=== PATIENT | female | born 2000 | race Caucasian/White ===

== ENCOUNTER 2019-09-04 03:38 | Inpatient (IN) | payer SELFPAY ==
[2019-09-04] VITALS (59 sets, daily range): BP systolic 88–133; BP diastolic 50–81
[~2019-09-04] VITALS: Ht 162.6 cm; Wt 71.3 kg
--- NOTE | 2019-09-04 06:00 | NUR ---
ROMINA TAYLOR presented to unit via ambulatory from ED, accompanied by s/o, with c/o INDUCTION 39 08/03. ROMINA TAYLOR weighed, gowned, voided, and to bed. EFHM and TOCO applied, VS taken. ROMINA TAYLOR oriented to bed controls, call light, TV, heat, and A/C controls.
[2019-09-04] MEDS ORDERED: D5 LR IV SOLUTION 1,000 ML IV ONE (06:09)
[2019-09-04] MEDS ORDERED: OXYTOCIN PRE-MIX DRIP 500 ML IV SCH (06:18)
[2019-09-04] MEDS: D5 LR IV SOLUTION 1,000 ML IV SCH ×3 (06:28→21:36)
[2019-09-04 06:29] LABS: BASOPHILS % (AUTO) 0 % (0-10); EOSINOPHILS # (AUTO) 0.1 10^3/uL (0.0-0.3); EOSINOPHILS % (AUTO) 1 % (0-10); HEMATOCRIT 36 % (35-52); HEMOGLOBIN 11.9 G/DL (11.5-16.0); LYMPHOCYTES # (AUTO) 2.6 X 10^3 (1.0-4.0); LYMPHOCYTES % (AUTO) 25 % (12-44); MEAN CORPUSCULAR HEMOGLOBIN 29 PG (25-34); MEAN CORPUSCULAR HGB CONC 34 G/DL (32-36); MEAN CORPUSCULAR VOLUME 85 FL (80-99); MEAN PLATELET VOLUME 10.8 FL (7.4-10.4); MONOCYTES # (AUTO) 0.9 X 10^3 (0.0-1.0); MONOCYTES % (AUTO) 9 % (0-12); NEUTROPHILS # (AUTO) 6.7 X 10^3 (1.8-7.8); NEUTROPHILS % (AUTO) 65 % (42-75); PLATELET COUNT 233 10^3/uL (130-400); RED CELL DISTRIBUTION WIDTH 14.1 % (10.0-14.5); WHITE BLOOD COUNT 10.3 10^3/uL (4.3-11.0)
--- NOTE | 2019-09-04 07:10 | NUR ---
report received form carolina shaw
--- NOTE | 2019-09-04 10:50 | NUR ---
THIS RN CALLS DR RICHARDS WITH UP PT REPORT. AUTUMN CLOSED, FIRM, UC Q2M, MODERATE-FIRM PALPATION, PT STATES NO PAIN, NOT FEELING UC. FHT REVIEWED WITH DR RICHARDS. NO NEW ORDERS RECEIVED. Addendum: 09/04/19 at 1646 by DANIEL ANDREWS RN RN INFORMS DR RICHARDS THAT PT IS NOW ON [address] RICHARDS STATES RN MAY TURN PITOCIN UP TO 30 MILLIUNITS, STOP AT 30.
--- NOTE | 2019-09-04 14:41 | NUR ---
RN UPDATES DR RICHARDS ON PT REPORT. SVE CLOSED. UPON EXAM, RN FELT SLIGHT DIMPLE INN CERVIX COMPARED TO THE ROUNDED CONE FELT ON INITIAL EXAM. PITOCIN ON . UC 1-3M. T REVIEWED WITH DR RICHARDS. NO NEW ORDERS. DR RICHARDS ASKS RN IF WE HAVE CERVIDIL. DR SUTHERLAND INFORMED THAT [facility] DOES NOT HAVE CERVIDIL BUT HAS CYTOTEC.
--- NOTE | 2019-09-04 16:30 | NUR ---
DR RICHARDS CALLED THIS RN TO DISCUSS PLAN OF PT CARE. SVE REMAINS UNCHANGED, CLOSED. DR RICHARDS ORDERS TO STOP PITOCIN, WAIT 4 HOURS, THEN GIVE A DOSE OF VAGINAL CYTOTEC FOR CERVICAL RIPENING. DR RICHARDS WILL BE [facility] TO SEE PT AFTER 1999.
--- NOTE | 2019-09-04 17:03 | NUR ---
PT WANTS TO EAT FOOD SINCE PITOCIN HAS BEEN TURNED OFF. THIS RN ASKS DR RICHARDS. DR RICHARDS OKAYED.
[2019-09-04] MEDS ORDERED: LACTATED RINGERS 1,000 ML IV SCH (17:07)
[2019-09-04] MEDS ORDERED: MISOPROSTOL 100 MCG (CYTOTEC) TAB PV PRN (17:15)
[2019-09-04] MEDS ORDERED: TERBUTALINE INJ 1 MG/ML (BRETHINE) AMP SC PRN (17:15)
[2019-09-04] MEDS: MISOPROSTOL 100 MCG (CYTOTEC) TAB PV PRN (20:40)
--- NOTE | 2019-09-04 21:36 | History & Physical-OB/GYN ---
History of Present Illness History of Present Illness Reason for visit/HPI Ms. Bee, at 39 2/7 weeks presents for Pitocin Induction of Labor Date of Admission Sep 04, 2019 at 05:38 Date Seen by a Provider: Sep 04, 2019 Time Seen by a Provider: 06:45 I consulted on this patient on 09/04/19 0645 Attending Physician Arturo Singletary DO Admitting Physician Arturo Singletary DO Consult Allergies and Home Medications Allergies Coded Allergies: No Known Drug Allergies (Unverified , 09/04/19) Patient Home Medication List Home Medication List Reviewed: Yes Past Wsolwho-Rrltmy-Rxyhrz Hx Patient Social History Marrital Status: Number of Children: 0 Number of living children: 0 Employed/Student: unemployed Alcohol Use: Denies Use Recreational Drug Use: No Smoking Status: Never a Smoker Physical Abuse Screen: No Sexual Abuse: No Recent Foreign Travel: No Contact w/other who traveled: No Recent Hopitalizations: No Recent Infectious Disease Expo: No Seasonal Allergies Seasonal Allergies: No Surgeries No Respiratory No Cardiovascular No Neurological No Reproductive System Expected Date of Delivery: Sep 09, 2019 Genitourinary No Gastrointestinal No Musculoskeletal No Endocrine History of Endocrine Disorders: No HEENT History of HEENT Disorders: No Cancer No Psychosocial History of Psychiatric Problem: No Integumentary History of Skin or Integumenta: No Blood Transfusions History of Blood Disorders: No Adverse Reaction to a Blood Tr: No Family Medical History Family Hx: Patient reports no known family medical history. Review of Systems Constitutional: see HPI Physical Exam Physical Exam Vital Signs Vital Signs Date Time Temp Pulse Resp B/P (MAP) Pulse Ox O2 Delivery O2 Flow Rate FiO2 09/04/19 20:45 36.9 91 16 115/81 (92) Room Air 09/04/19 19:45 91 16 101/61 (74) Room Air 09/04/19 19:30 37.1 87 16 107/62 (77) Room Air 09/04/19 19:15 84 16 98/65 (76) Room Air 09/04/19 19:00 88 111/66 (81) Room Air 09/04/19 18:45 85 110/74 (86) Room Air 09/04/19 18:30 37.0 86 110/71 (84) Room Air 09/04/19 18:15 Room Air 09/04/19 18:00 88 109/67 (81) Room Air 09/04/19 17:45 84 107/69 (82) Room Air 09/04/19 17:30 86 104/64 (77) Room Air 09/04/19 17:15 82 17 107/66 (80) Room Air 09/04/19 17:00 99 103/67 (79) Room Air 09/04/19 16:45 81 109/68 (82) Room Air 09/04/19 16:30 80 100/63 (75) Room Air 09/04/19 16:15 37.4 86 133/58 (83) Room Air 09/04/19 16:00 87 118/70 (86) Room Air 09/04/19 15:45 81 111/69 (83) Room Air 09/04/19 15:30 79 114/69 (84) Room Air 09/04/19 15:15 79 101/55 (70) Room Air 09/04/19 15:00 91 94/53 (67) Room Air 09/04/19 14:45 82 18 96/53 (67) Room Air 09/04/19 14:30 37.4 85 101/62 (75) Room Air 09/04/19 14:15 86 104/68 (80) Room Air 09/04/19 14:00 86 98/55 (69) Room Air 09/04/19 13:45 86 111/69 (83) Room Air 09/04/19 13:30 85 126/73 (90) Room Air 09/04/19 13:15 37.6 76 16 94/60 (71) Room Air 09/04/19 13:00 106 88/54 (65) Room Air 09/04/19 12:45 83 106/57 (73) Room Air 09/04/19 12:30 91 98/59 (72) Room Air 09/04/19 12:15 82 112/61 (78) Room Air 09/04/19 12:00 85 111/57 (75) Room Air 09/04/19 11:45 82 111/67 (82) Room Air 09/04/19 11:30 82 120/73 (89) Room Air 09/04/19 11:15 87 18 112/73 (86) Room Air 09/04/19 11:00 86 119/60 (79) Room Air 09/04/19 10:45 85 111/71 (84) Room Air 09/04/19 10:30 105 126/76 (93) Room Air 09/04/19 10:15 88 100/55 (70) Room Air 09/04/19 10:00 88 104/58 (73) Room Air 09/04/19 09:45 37.4 82 92/52 (65) Room Air 09/04/19 09:30 78 16 108/65 (79) Room Air 09/04/19 09:15 Room Air 09/04/19 09:00 78 106/67 (80) Room Air 09/04/19 08:45 86 105/69 (81) Room Air 09/04/19 08:30 80 107/65 (79) Room Air 09/04/19 08:15 83 109/67 (81) Room Air 09/04/19 08:12 37.5 100 16 100 Room Air 09/04/19 08:00 81 104/65 (78) Room Air 09/04/19 07:45 81 101/62 (75) Room Air 09/04/19 07:30 37.1 87 16 117/60 (79) Room Air 09/04/19 07:15 09/04/19 07:00 100 109/66 (80) 09/04/19 06:45 90 102/59 (73) 09/04/19 06:10 37.5 100 18 113/68 (83) 98 Capillary Refill : Less Than 3 Seconds Labs Laboratory Tests 09/04/19 06:15: White Blood Count 10.3, Red Blood Count 4.16L, Hemoglobin 11.9, Hematocrit 36, Mean Corpuscular Volume 85, Mean Corpuscular Hemoglobin 29, Mean Corpuscular Hemoglobin Concent 34, Red Cell Distribution Width 14.1, Platelet Count 233, Mean Platelet Volume 10.8H, Neutrophils (%) (Auto) 65, Lymphocytes (%) (Auto) 25, Monocytes (%) (Auto) 9, Eosinophils (%) (Auto) 1, Basophils (%) (Auto) 0, Neutrophils # (Auto) 6.7, Lymphocytes # (Auto) 2.6, Monocytes # (Auto) 0.9, Eosinophils # (Auto) 0.1, Basophils # (Auto) 0.0 General Appearance: No Apparent Distress, WD/WN Respiratory: Chest Non Tender, Lungs Clear, Normal Breath Sounds Cardiovascular: Regular Rate, Rhythm, No Murmur Abdominal: normal bowel sounds, non tender Vagina: WNL Cervix: WNL Cervix OS: closed Uterus: Enlarged (Gravid) Extremity: Normal Inspection, No Calf Tenderness Assessment/Plan Assessment and Plan Assessment: Intrauterine at 39 2/7 /weeks Plan: Pitocin Induction of Labor. AROM when possible. Pain management per patient request. I expect a normal spontaneous vaginal delivery Admission Diagnosis Admission Status: Inpatient Order (span 2 midnights) Reason for Inpatient Admission: Pitocin Induction of Labor Clinical Quality Measures DVT/VTE Risk/Contraindication: Risk Factor Score Per Nursin RFS Level Per Nursing on Admit: 1=Low/No VTE PPX ARTURO SINGLETARY DO Sep 04, 2019 21:36
[2019-09-05] VITALS (13 sets, daily range): BP systolic 81–111; BP diastolic 46–74
[2019-09-05] MEDS: MISOPROSTOL 100 MCG (CYTOTEC) TAB PV PRN (00:46)
[2019-09-05] MEDS: D5 LR IV SOLUTION 1,000 ML IV SCH (05:55)
--- NOTE | 2019-09-05 07:40 | Discharge Summary ---
Diagnosis/Chief Complaint Date of Admission Sep 04, 2019 at 05:38 Date of Discharge September 05, 2019 Discharge Date: Sep 05, 2019 Discharge Time: 08:00 Admission Diagnosis Admission Diagnosis Intrauterine at 39 2/7 weeks Discharge Diagnosis Intrauterine at 39 3/7 weeks Reason Hospital Visit Ms. Bee, at 39 2/7 weeks presents for Pitocin Induction of Labor Discharge Summary Hospital Course Was the Problem List Reviewed?: Yes Hospital Course Ms. Bee was admitted for scheduled Pitocin Induction. After using Pitocin overnight with no cervical change, I tried Cytotec for several doses. Just like the Pitocin the Cytotec didn't exact any cervical change. Consequently, we decided that it may be prudent to send her home and try induction on a different day. We rescheduled her for September 09, 2019. Labs Laboratory Tests 09/04/19 06:15: Red Blood Count 4.16L, Mean Platelet Volume 10.8H Procedures None. Discharge Physical Examination Allergies: Coded Allergies: No Known Drug Allergies (Unverified , 09/04/19) Vitals & I&Os Vital Signs Date Time Temp Pulse Resp B/P (MAP) Pulse Ox O2 Delivery O2 Flow Rate FiO2 09/05/19 06:45 80 16 108/72 (84) Room Air 09/05/19 06:15 36.6 09/04/19 08:12 100 General Appearance: Alert, Oriented X3, Cooperative HEENT: Atraumatic Respiratory: Clear to Auscultation, Normal Air Movement Cardiovascular: Regular Rate, No Murmurs Abdominal: Normal Bowel Sounds Extremities: No Clubbing, No Cyanosis Skin: No Rashes Neuro: Normal Gait, Normal Speech Psych/Mental Status: Mental Status NL Discharge Home Medications Reviewed and agree with Discharge Medication list on patient's Discharge Instruction sheet Instructions to Patient/Family Please see electronic discharge instructions given to patient. Clinical Quality Measures DVT/VTE Risk/Contraindication: Risk Factor Score Per Nursin RFS Level Per Nursing on Admit: 1=Low/No VTE PPX HAMILTON RICHARDS DO Sep 05, 2019 07:40
--- NOTE | 2019-09-05 09:00 | NUR ---
Discharge instructions explained, signed and copy to patient. pt verbalized understanding of instructions and denied questions. Ambulates self off unit to private vehicle with belongings in hand.
--- OUTSIDE RECORDS SUMMARY | 2019-09-06 07:13 | XMS REPORT | Continuity of Care Document ---
Author Organization Unknown Address Unknown Phone Unavailable Allergies Active Description Code Type Severity Reaction Onset Reported/Identified Relationship to Patient Clinical Status Yes No Known Drug Allergies [id number] Drug Allergy Unknown N/A 09/04/2019 Medications There is no data. Problems There is no data. Procedures There is no data. Results Test Result Range HCG, QUANTITATIVE - 03/09/19 14:56 [place], [place] [address] mIU/mL NRG SUREPATH PAP RFX HPV mRNA E6/E7 - 09:43 CLINICAL INFORMATION: NRG LMP: NRG PREV. PAP: NRG PREV. 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: NRG INFECTION: NRG COMMENT NRG GLUCOSE ENDY 1 HOUR - 06/29/19 12:03 GLUCOSE, POSTPRANDIAL/ 1 HOUR 103 mg/dL See Note: CBC - 06/29/19 12:03 WHITE BLOOD CELL COUNT 8.9 Thousand/uL 3 .8-10.8 RED BLOOD CELL COUNT 3.93 Million/uL 3.8 0-5.10 HEMOGLOBIN 11.4 g/dL 11.7-15.5 HEMATOCRIT 34.6 % 35.0-45.0 MCV 88.0 fL 80.0-100.0 MCH 29.0 pg 27.0-33.0 MCHC 32.9 g/dL 32.0-36.0 RDW 12.6 % 11.0-15.0 PLATELET COUNT 248 Thousand/uL 140-400 MPV 10.5 fL 7.5-12.5 ABSOLUTE NEUTROPHILS 5874 cells/uL 1500- 7800 ABSOLUTE LYMPHOCYTES 2474 cells/uL 850-3 900 ABSOLUTE MONOCYTES 445 cells/uL 200-950 ABSOLUTE EOSINOPHILS 80 cells/uL 15-500 ABSOLUTE BASOPHILS 27 cells/uL 0-200 NEUTROPHILS 66 % NRG LYMPHOCYTES 27.8 % NRG MONOCYTES 5.0 % NRG EOSINOPHILS 0.9 % NRG BASOPHILS 0.3 % NRG SYPHILIS (RPR W/ REFLEX CONFIRMATION) - 06/29/19 12:03 RPR (DX) W/REFL TITER AND CONFIRMATORY TESTING NON-REACTIVE NON-REACTIVE CULTURE, GROUP B STREP (VAGINAL) - 08/10 09:40 STREPTOCOCCUS, GROUP B CULTURE SEE NOTE NRG Complete blood count (CBC) with automate d white blood cell (WBC) differential - 09/04/19 06:15 Blood leukocytes automated count (number/volume) 10.3 10*3/uL 4.3-11.0 Blood erythrocytes automated count (number/volume) 4.16 10*6/uL 4.35-5.85 Venous blood hemoglobin measurement (mass/volume) 11.9 g/dL 11.5-16.0 Blood hematocrit (volume fraction) 36 % 35-52 Automated erythrocyte mean corpuscular volume 85 [ foz_us] 80-99 Automated erythrocyte mean corpuscular h emoglobin (mass per erythrocyte) 29 pg 25-34 Automated erythrocyte mean corpuscular h emoglobin concentration measurement (mass/volume) 34 g/dL 32-36 Automated erythrocyte distribution width ratio 14. 1 % 10.0- 14.5 Automated blood platelet count (count/volume) 233 10*3/uL 130-400 Automated blood platelet mean volume measurement 10.8 [foz_us] 7.4-10.4 Automated blood neutrophils/100 leukocytes 65 % 42-75 Automated blood lymphocytes/100 leukocytes 25 % 12-44 Blood monocytes/100 leukocytes 9 % 0-12 Automated blood eosinophils/100 leukocytes 1 % 0-10 Automated blood basophils/100 leukocytes 0 % 0-10 Blood neutrophils automated count (number/volume) 6.7 10*3 1.8-7.8 Blood lymphocytes automated count (number/volume) 2.6 10*3 1.0-4.0 Blood monocytes automated count (number/volume) 0. 9 10*3 0.0-1.0 Automated eosinophil count 0.1 10*3/uL 0 .0-0.3 Automated blood basophil count (count/volume) 0.0 10*3/uL 0.0-0.1 Blood type T Indirect antibody screen pa annamaria - 09/04/19 07:16 WRISTBAND NUMBER [id number] NRG ABO+Rh group AP NRG Blood group antibody screen NEGATIVE NR G Encounters ACCT No. Visit Date/Time Discharge Status Pt. Type Provider Facility Loc./Unit Complaint [id number] 06/29/2019 11:00:00 06/29/2019 23:59: 59 CLS Outpatient [facility] [id number] 08/10/2019 09:30:00 Document Registration [id number] 06/29/2019 11:00:00 Document Registration [id number] 03/15/2019 09:30:00 Document Registration [id number] 03/09/2019 15:00:00 Document Registration [id number] 09/04/2019 05:38:00 020 09:00:00 DIS Inpatient HAMILTON RICHARDS DO Via [facility] LDRP INDUCTION
== END 2019-09-05 09:00 | disposition home or self-care (01) | DRG 833 ==
LOC: LDRP 05:38
PROVIDERS: ADMIT Obstetrics & Gynecology; ATTEND Obstetrics & Gynecology
PROC: 3E033VJ Introduction of Other Hormone into Peripheral Vein, Percutaneous Approach (ICD-10-PCS; principal; 2019-09-04)
DX: O61.0 Failed medical induction of labor (principal); Z3A.39 39 weeks gestation of pregnancy
CPT/HCPCS: 36415; 82962; 85025; 86850; 86900; 86901; 96361; 96374; 99211; G0378

== ENCOUNTER 2019-09-09 20:00 | Inpatient (IN) | payer SELFPAY ==
[2019-09-09] VITALS (7 sets, daily range): BP systolic 102–117; BP diastolic 63–76
[~2019-09-09] VITALS: Ht 157.5 cm; Wt 70.8 kg
--- NOTE | 2019-09-09 20:00 | NUR ---
ROMINA TAYLOR presented to unit via ambulation from home, accompanied by , for INDUCTION. ROMINA TAYLOR weighed, gowned, voided, and to bed. EFHM and TOCO applied, VS taken. ROMINA TAYLOR oriented to bed controls, call light, TV, heat, and A/C controls.
[2019-09-09] MEDS ORDERED: LACTATED RINGERS 1,000 ML IV SCH (20:35)
[2019-09-09] MEDS ORDERED: D5 LR IV SOLUTION 1,000 ML IV ONE (20:44)
[2019-09-09 20:45] LABS: BILIRUBIN,URINE NEGATIVE (NEGATIVE); CLARITY,URINE CLEAR; COLOR,URINE YELLOW; GLUCOSE, URINE (UA) NEGATIVE (NEGATIVE); KETONES,URINE NEGATIVE (NEGATIVE); LEUKOCYTE ESTERASE ,URINE 2+ (NEGATIVE); NITRITE,URINE NEGATIVE (NEGATIVE); PROTEIN,URINE NEGATIVE (NEGATIVE)
[2019-09-09] MEDS ORDERED: MINERAL OIL CONCENTRATE 99.9% 15 ML UDC TOP PRN (20:45)
[2019-09-09] MEDS ORDERED: MISOPROSTOL 100 MCG (CYTOTEC) TAB PO ONE (20:45)
[2019-09-09 20:50] LABS: BASOPHILS % (AUTO) 0 % (0-10); EOSINOPHILS # (AUTO) 0.1 10^3/uL (0.0-0.3); EOSINOPHILS % (AUTO) 1 % (0-10); HEMATOCRIT 36 % (35-52); HEMOGLOBIN 12.1 G/DL (11.5-16.0); LYMPHOCYTES # (AUTO) 2.5 X 10^3 (1.0-4.0); LYMPHOCYTES % (AUTO) 26 % (12-44); MEAN CORPUSCULAR HEMOGLOBIN 29 PG (25-34); MEAN CORPUSCULAR HGB CONC 34 G/DL (32-36); MEAN CORPUSCULAR VOLUME 84 FL (80-99); MONOCYTES # (AUTO) 0.7 X 10^3 (0.0-1.0); MONOCYTES % (AUTO) 7 % (0-12); NEUTROPHILS # (AUTO) 6.5 X 10^3 (1.8-7.8); NEUTROPHILS % (AUTO) 67 % (42-75); PLATELET COUNT 261 10^3/uL (130-400); RED CELL DISTRIBUTION WIDTH 13.4 % (10.0-14.5); WHITE BLOOD COUNT 9.8 10^3/uL (4.3-11.0)
[2019-09-09 20:53] LABS: BACTERIA,URINE TRACE /HPF
[2019-09-09] MEDS: D5 LR IV SOLUTION 1,000 ML IV SCH (20:53)
[2019-09-09] MEDS ORDERED: MISOPROSTOL 100 MCG (CYTOTEC) TAB ONE (20:56)
[2019-09-10] VITALS (84 sets, daily range): BP systolic 87–131; BP diastolic 50–95
[2019-09-10] MEDS ORDERED: MISOPROSTOL 100 MCG (CYTOTEC) TAB PO SCH (00:45)
[2019-09-10] MEDS: D5 LR IV SOLUTION 1,000 ML IV SCH ×3 (04:15→18:17)
--- OUTSIDE RECORDS SUMMARY | 2019-09-10 04:22 | XMS REPORT | Continuity of Care Document ---
Author Organization Unknown Address Unknown Phone Unavailable Allergies Active Description Code Type Severity Reaction Onset Reported/Identified Relationship to Patient Clinical Status Yes No Known Drug Allergies [id number] Drug Allergy Unknown N/A 09/04/2019 Medications There is no data. Problems There is no data. Procedures There is no data. Results Test Result Range HCG, QUANTITATIVE - 03/09/19 14:56 [place], [place] [address] mIU/mL NRG SUREPATH PAP RFX HPV mRNA E6/E7 - 09:43 CLINICAL INFORMATION: NRG LMP: NRG PREV. PAP: NRG PREV. 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 Visit Date/Time Discharge Status Pt. Type Provider Facility Loc./Unit Complaint [id number] 06/29/2019 11:00:00 06/29/2019 23:59: 59 CLS Outpatient [facility] [id number] 08/10/2019 09:30:00 Document Registration [id number] 06/29/2019 11:00:00 Document Registration [id number] 03/15/2019 09:30:00 Document Registration [id number] 03/09/2019 15:00:00 Document Registration [id number] 09/04/2019 05:38:00 020 09:00:00 DIS Inpatient HAMILTON RICHARDS DO [facility] LDRP INDUCTION [id number] 09/09/2019 20:00:00 P EN Preadmit HAMILTON RICHARDS DO I NDUCTION
[2019-09-10] MEDS ORDERED: OXYTOCIN PRE-MIX DRIP 500 ML IV SCH ×2 (05:00→20:05)
[2019-09-10] MEDS: LACTATED RINGERS 1,000 ML IV SCH ×2 (09:49→18:31)
[2019-09-10] MEDS ORDERED: SUFENTA 0.6MCG/ML BUPIVA 0.125 100 ML ONE (10:16)
[2019-09-10] MEDS ORDERED: BUPIVACAINE 0.25% 30 ML (SENSORCAINE) VIAL ONE ×2 (10:34→18:34)
[2019-09-10] MEDS ORDERED: LIDOCAINE PF 2% 5 ML (XYLOCAINE) VIAL ONE ×2 (10:34→18:34)
[2019-09-10] MEDS ORDERED: fentaNYL INJECTION 100 MCG/2 ML AMP ONE ×2 (10:35→18:35)
--- NOTE | 2019-09-10 10:45 | NUR ---
1045 Cruz WHITESIDE CRNA here for epidural placement. Procedure explained, consent reviewed and signed by anesthesia. Questions answered to patient's satisfaction. Time out taken to verify correct patient/procedure. 1049 Patient up to side of bed, assisted into sitting position. 1054 Betadine prep done x3 and sterile drape applied. 1057 Local done, see anesthesia record. 1101 Test dose given, see anesthesia record for drug and dosage. Epidural catheter secured in place. Epidural placement complete. 1110 Assisted back into bed, monitors adjusted. Epidural dosed, see anesthesia record. Epidural of Sufenta/Bupvicaine @12cc/hr stated per pump. Patient tolerated procedure well.
[2019-09-10] MEDS ORDERED: NALOXONE 0.4 MG/ML 1 ML (NARCAN) VIAL IV PRN (11:30)
[2019-09-10] MEDS ORDERED: ONDANSETRON 4 MG/2 ML (SDV) Z0FRAN IV PRN (11:30)
[2019-09-10] MEDS ORDERED: EPIDURAL (SUFENTA 0.6MCG/ML BUPIVA 0.125%) 100 ML BAG EPI PRN (11:30)
[2019-09-10] MEDS ORDERED: diphenhydrAMINE 50 MG/ML INJ (BENADRYL) IV PRN (11:30)
--- NOTE | 2019-09-10 12:37 | History & Physical-OB/GYN ---
History of Present Illness History of Present Illness Reason for visit/HPI Ms. Bee, , at 40 2/7 weeks gestation, was admitted for Cytotec Cervical Ripening, followed by Pitocin Induction of Labor Date of Admission Sep 09, 2019 at 20:06 Date Seen by a Provider: Sep 10, 2019 Time Seen by a Provider: 09:30 I consulted on this patient on 09/10/19 12:32 Attending Physician Arturo Singletary DO Admitting Physician Arturo Singletary DO Consult Allergies and Home Medications Allergies Coded Allergies: No Known Drug Allergies (Unverified , 09/09/19) Home Medications No Active Prescriptions or Reported Meds Patient Home Medication List Home Medication List Reviewed: Yes Past Cxhcuwv-Ctbnbn-Xqwdjy Hx Patient Social History Marrital Status: Number of Children: 0 Number of living children: 0 Employed/Student: unemployed Alcohol Use: Denies Use Recreational Drug Use: No Physical Abuse Screen: No Sexual Abuse: No Recent Foreign Travel: No Recent Hopitalizations: No Seasonal Allergies Seasonal Allergies: No Surgeries No Respiratory No Cardiovascular No Neurological No Reproductive System Expected Date of Delivery: Sep 09, 2019 Sexually Transmitted Disease: No HIV/AIDS: No Genitourinary No Gastrointestinal No Musculoskeletal No Endocrine History of Endocrine Disorders: No HEENT History of HEENT Disorders: No Cancer No Psychosocial History of Psychiatric Problem: No Integumentary History of Skin or Integumenta: No Blood Transfusions History of Blood Disorders: No Adverse Reaction to a Blood Tr: No Family Medical History Family Hx: Patient reports no known family medical history. Review of Systems Constitutional: see HPI Physical Exam Physical Exam Vital Signs Vital Signs Date Time Temp Pulse Resp B/P (MAP) Pulse Ox O2 Delivery O2 Flow Rate FiO2 09/10/19 11:37 36.8 55 18 108/65 (79) Non Rebreather 15.00 09/10/19 11:35 64 18 102/65 (77) 99 Non Rebreather 15.00 09/10/19 11:28 64 18 96/56 (69) Non Rebreather 15.00 09/10/19 11:25 57 18 111/55 (73) 100 Non Rebreather 15.00 09/10/19 11:22 49 18 118/72 (87) 100 Non Rebreather 15.00 09/10/19 11:19 53 18 92/51 (65) Non Rebreather 15.00 09/10/19 11:16 53 18 92/53 (66) 100 Non Rebreather 15.00 09/10/19 11:13 37.2 68 18 96/57 (70) Non Rebreather 15.00 09/10/19 11:10 78 18 104/59 (74) 98 Room Air 09/10/19 11:07 79 18 103/71 (82) 91 Room Air 09/10/19 11:04 79 18 101/62 (75) 97 Room Air 09/10/19 11:01 68 18 103/64 (77) Room Air 09/10/19 10:58 70 18 124/74 (91) Room Air 09/10/19 10:55 72 18 118/74 (89) 100 Room Air 09/10/19 10:52 72 18 117/85 (96) Room Air 09/10/19 10:49 74 18 123/78 (93) 100 Room Air 09/10/19 10:37 68 18 128/80 (96) Room Air 09/10/19 10:06 57 18 119/79 (92) Room Air 09/10/19 09:51 67 18 128/78 (95) Room Air 09/10/19 09:37 61 16 130/78 (95) Room Air 09/10/19 09:28 36.8 62 16 114/76 (89) Room Air 09/10/19 08:22 67 16 125/79 (94) Room Air 09/10/19 08:06 68 16 119/59 (79) Room Air 09/10/19 07:51 59 16 121/81 (94) Room Air 09/10/19 07:37 59 16 103/55 (71) Room Air 09/10/19 07:29 36.8 09/10/19 07:20 69 16 126/88 (101) Room Air 09/10/19 07:06 61 16 122/80 (94) Room Air 09/10/19 06:20 54 16 111/66 (81) Room Air 09/10/19 06:10 61 16 111/63 (79) Room Air 09/10/19 05:50 57 16 124/79 (94) Room Air 09/10/19 05:35 60 16 108/74 (85) Room Air 09/10/19 05:20 65 16 87/52 (64) Room Air 09/10/19 04:50 69 16 110/56 (74) Room Air 09/10/19 04:20 37.0 63 16 90/53 (65) Room Air 09/10/19 03:50 69 16 91/50 (64) Room Air 09/10/19 03:20 64 16 91/51 (64) Room Air 09/10/19 02:50 69 16 109/59 (76) Room Air 09/10/19 02:20 65 16 120/67 (84) Room Air 09/10/19 01:50 64 16 110/57 (74) Room Air 09/10/19 01:20 36.6 65 16 98/55 (69) Room Air 09/10/19 00:50 68 16 96/55 (69) Room Air 09/10/19 00:20 67 16 109/73 (85) Room Air 09/09/19 23:50 81 16 102/65 (77) Room Air 09/09/19 23:20 75 16 106/67 (80) Room Air 09/09/19 22:45 71 16 102/63 (76) Room Air 09/09/19 22:25 68 16 117/76 (90) Room Air 09/09/19 21:15 77 16 105/66 (79) 99 Room Air 09/09/19 21:00 37.2 83 16 99 Room Air 09/09/19 20:30 37.2 83 16 115/72 (86) 99 Room Air I & O 09/10/19 07:00 Intake Total 2000 ml Balance 2000 ml Capillary Refill : Less Than 3 Seconds Labs Laboratory Tests 09/09/19 20:05: Urine Color YELLOW, Urine Clarity CLEAR, Urine pH 7.0, Urine Specific Beverly <=1.005, Urine Protein NEGATIVE, Urine Glucose (UA) NEGATIVE, Urine Ketones NEGATIVE, Urine Nitrite NEGATIVE, Urine Bilirubin NEGATIVE, Urine Urobilinogen 0.2, Urine Leukocyte Esterase 2+H, Urine RBC (Auto) NEGATIVE, Urine RBC NONE, Urine WBC 5-10H, Urine Squamous Epithelial Cells 5-10, Urine Crystals NONE, Uri ne Bacteria TRACE, Urine Casts NONE, Urine Mucus NEGATIVE, Urine Culture Indicated YES 09/09/19 20:20: White Blood Count 9.8, Red Blood Count 4.25L, Hemoglobin 12.1, Hematocrit 36, Mean Corpuscular Volume 84, Mean Corpuscular Hemoglobin 29, Mean Corpuscular Hemoglobin Concent 34, Red Cell Distribution Width 13.4, Platelet Count 261, Mean Platelet Volume 11.0H, Neutrophils (%) (Auto) 67, Lymphocytes (%) (Auto) 26, Monocytes (%) (Auto) 7, Eosinophils (%) (Auto) 1, Basophils (%) (Auto) 0, Neutrophils # (Auto) 6.5, Lymphocytes # (Auto) 2.5, Monocytes # (Auto) 0.7, Eosinophils # (Auto) 0.1, Basophils # (Auto) 0.0 General Appearance: No Apparent Distress, WD/WN, Other (Very quiet (shy), doesn't vocalize much) Respiratory: Chest Non Tender, Lungs Clear, Normal Breath Sounds Cardiovascular: Regular Rate, Rhythm, No Murmur Abdominal: normal bowel sounds, non tender Labia: WNL Vagina: WNL Cervix: WNL Cervix OS: closed Uterus: Enlarged (Gravid) Extremity: Normal Inspection, Non Tender, No Calf Tenderness Assessment/Plan Assessment and Plan Assessment: Intrauterine at 40 2/7 weeks Plan: Cytotec orally every 4 hours. Then, Pitocin Induction. Pain management per patient request. I expect a normal spontaneous vaginal delivery. Admission Diagnosis Admission Status: Inpatient Order (span 2 midnights) Reason for Inpatient Admission: Cytotec cervical ripening, followed by Pitocin Induction of Labor Clinical Quality Measures DVT/VTE Risk/Contraindication: Risk Factor Score Per Nursin RFS Level Per Nursing on Admit: 1=Low/No VTE ARTURO LEA DO Sep 10, 2019 12:37
[2019-09-10] MEDS ORDERED: METOCLOPRAMIDE INJ 10 MG/2 ML (REGLAN) ONE (18:10)
[2019-09-10] MEDS ORDERED: FAMOTIDINE 20MG/2ML IV (PEPCID) ONE (18:11)
[2019-09-10] MEDS ORDERED: CITRIC ACID/SOB CIT (BICITRA) 30 ML UDC ONE (18:11)
[2019-09-10] MEDS ORDERED: ceFAZolin 2 GM IV Premixed 50 ML ONE (18:41)
--- NOTE | 2019-09-10 18:47 | Labor Progress Note ---
Labor Progress Note Labor Progress Note Date Seen by Provider: Sep 10, 2019 Time Seen by Provider: 15:00 Subjective: Patient was being Induced at 40 2/7 weeks. Objective: (Can we insert 24 hour vitals here?) Cervical exam: [1 cm] Consistency: [60%] Position: [-3] Presentation: [Vertex] heart tones: 140] beats per minute, [decreased] variability, [] reactive Tocometer: [every 2-3] ctx/10 minutes Repetitive Late Decelerations with decreased variability (Pitocin was discontinued, IV fluid bolus, oxygen via mask, position changes (left lateral recumbent) Assessment/Plan: Jackeline Bee is a (20 /Para / ,Gestational Age (wks)40 here for []. CEFM/TOCO Ms. Bee's fetus is not tolerating labor well, with her low dilation (1 cm), this was discussed with Ms. Bee and her . We are going to proceed with an immediate . The procedure and its associated risks were discussed. All questions were answered. Informed consent was obtained. Vitals - Labs Vital Signs - I&O Vital Signs Date Time Temp Pulse Resp B/P (MAP) Pulse Ox O2 Delivery O2 Flow Rate FiO2 09/10/19 17:20 54 18 94/53 (67) 96 Room Air 09/10/19 17:06 52 18 94/53 (67) 98 Room Air 09/10/19 16:51 60 18 99/62 (74) 98 Room Air 09/10/19 16:34 66 18 95/51 (66) 98 Room Air 09/10/19 16:20 63 18 102/65 (77) 98 Room Air 09/10/19 16:18 37.7 09/10/19 16:05 67 18 105/58 (74) 97 Room Air 09/10/19 15:49 53 18 108/61 (77) 100 Non Rebreather 15.00 09/10/19 15:35 64 18 111/75 (87) 100 Non Rebreather 15.00 09/10/19 15:28 37.5 09/10/19 15:19 56 18 119/70 (86) 100 Non Rebreather 15.00 09/10/19 15:05 45 18 113/57 (75) 100 Non Rebreather 15.00 09/10/19 14:34 74 18 102/64 (77) 100 Non Rebreather 15.00 09/10/19 14:20 51 18 97/55 (69) 100 Non Rebreather 15.00 09/10/19 14:05 52 18 94/50 (65) 100 Non Rebreather 15.00 09/10/19 14:01 37.3 09/10/19 13:49 52 18 97/62 (74) 100 Non Rebreather 15.00 09/10/19 13:36 50 18 101/58 (72) 100 Non Rebreather 15.00 09/10/19 13:20 46 18 100/63 (75) 100 Non Rebreather 15.00 09/10/19 13:04 63 18 98/61 (73) 100 Non Rebreather 15.00 09/10/19 12:50 85 18 108/66 (80) 100 Non Rebreather 15.00 09/10/19 12:37 49 18 94/50 (65) 100 Non Rebreather 15.00 09/10/19 12:26 37.5 09/10/19 12:19 58 18 115/61 (79) Non Rebreather 15.00 09/10/19 12:17 54 18 111/56 (74) Non Rebreather 15.00 09/10/19 12:10 71 18 117/59 (78) 100 Non Rebreather 15.00 09/10/19 12:04 52 18 92/55 (67) 100 Non Rebreather 15.00 09/10/19 11:59 47 18 93/53 (66) Non Rebreather 15.00 09/10/19 11:55 50 18 93/50 (64) 100 Non Rebreather 15.00 09/10/19 11:50 63 18 101/63 (76) 100 Non Rebreather 15.00 09/10/19 11:45 49 18 94/56 (69) 100 Non Rebreather 15.00 09/10/19 11:37 36.8 55 18 108/65 (79) Non Rebreather 15.00 09/10/19 11:35 64 18 102/65 (77) 99 Non Rebreather 15.00 09/10/19 11:28 64 18 96/56 (69) Non Rebreather 15.00 09/10/19 11:25 57 18 111/55 (73) 100 Non Rebreather 15.00 09/10/19 11:22 49 18 118/72 (87) 100 Non Rebreather 15.00 09/10/19 11:19 53 18 92/51 (65) Non Rebreather 15.00 09/10/19 11:16 53 18 92/53 (66) 100 Non Rebreather 15.00 09/10/19 11:13 37.2 68 18 96/57 (70) Non Rebreather 15.00 09/10/19 11:10 78 18 104/59 (74) 98 Room Air 09/10/19 11:07 79 18 103/71 (82) 91 Room Air 09/10/19 11:04 79 18 101/62 (75) 97 Room Air 09/10/19 11:01 68 18 103/64 (77) Room Air 09/10/19 10:58 70 18 124/74 (91) Room Air 09/10/19 10:55 72 18 118/74 (89) 100 Room Air 09/10/19 10:52 72 18 117/85 (96) Room Air 09/10/19 10:49 74 18 123/78 (93) 100 Room Air 09/10/19 10:37 68 18 128/80 (96) Room Air 09/10/19 10:06 57 18 119/79 (92) Room Air 09/10/19 09:51 67 18 128/78 (95) Room Air 09/10/19 09:37 61 16 130/78 (95) Room Air 09/10/19 09:28 36.8 62 16 114/76 (89) Room Air 09/10/19 08:22 67 16 125/79 (94) Room Air 09/10/19 08:06 68 16 119/59 (79) Room Air 09/10/19 07:51 59 16 121/81 (94) Room Air 09/10/19 07:37 59 16 103/55 (71) Room Air 09/10/19 07:29 36.8 09/10/19 07:20 69 16 126/88 (101) Room Air 09/10/19 07:06 61 16 122/80 (94) Room Air 09/10/19 06:20 54 16 111/66 (81) Room Air 09/10/19 06:10 61 16 111/63 (79) Room Air 09/10/19 05:50 57 16 124/79 (94) Room Air 09/10/19 05:35 60 16 108/74 (85) Room Air 09/10/19 05:20 65 16 87/52 (64) Room Air 09/10/19 04:50 69 16 110/56 (74) Room Air 09/10/19 04:20 37.0 63 16 90/53 (65) Room Air 09/10/19 03:50 69 16 91/50 (64) Room Air 09/10/19 03:20 64 16 91/51 (64) Room Air 09/10/19 02:50 69 16 109/59 (76) Room Air 09/10/19 02:20 65 16 120/67 (84) Room Air 09/10/19 01:50 64 16 110/57 (74) Room Air 09/10/19 01:20 36.6 65 16 98/55 (69) Room Air 09/10/19 00:50 68 16 96/55 (69) Room Air 09/10/19 00:20 67 16 109/73 (85) Room Air 09/09/19 23:50 81 16 102/65 (77) Room Air 09/09/19 23:20 75 16 106/67 (80) Room Air 09/09/19 22:45 71 16 102/63 (76) Room Air 09/09/19 22:25 68 16 117/76 (90) Room Air 09/09/19 21:15 77 16 105/66 (79) 99 Room Air 09/09/19 21:00 37.2 83 16 99 Room Air 09/09/19 20:30 37.2 83 16 115/72 (86) 99 Room Air I & O 09/10/19 07:00 Intake Total 2000 ml Balance 2000 ml Labs Laboratory Tests 09/09/19 20:05: Urine Color YELLOW, Urine Clarity CLEAR, Urine pH 7.0, Urine Specific [place] <=1.005, Urine Protein NEGATIVE, Urine Glucose (UA) NEGATIVE, Urine Ketones NEGATIVE, Urine Nitrite NEGATIVE, Urine Bilirubin NEGATIVE, Urine Urobilinogen 0.2, Urine Leukocyte Esterase 2+H, Urine RBC (Auto) NEGATIVE, Urine RBC NONE, Urine WBC 5-10H, Urine Squamous Epithelial Cells 5-10, Urine Crystals NONE, Urine Bacteria TRACE, Urine Casts NONE, Urine Mucus NEGATIVE, Urine Culture Indicated YES 09/09/19 20:20: White Blood Count 9.8, Red Blood Count 4.25L, Hemoglobin 12.1, Hematocrit 36, Mean Corpuscular Volume 84, Mean Corpuscular Hemoglobin 29, Mean Corpuscular Hemoglobin Concent 34, Red Cell Distribution Width 13.4, Platelet Count 261, Mean Platelet Volume 11.0H, Neutrophils (%) (Auto) 67, Lymphocytes (%) (Auto) 26, Monocytes (%) (Auto) 7, Eosinophils (%) (Auto) 1, Basophils (%) (Auto) 0, Neutrophils # (Auto) 6.5, Lymphocytes # (Auto) 2.5, Monocytes # (Auto) 0.7, Eosinophils # (Auto) 0.1, Basophils # (Auto) 0.0 HAMILTON RICHARDS DO Sep 10, 2019 18:47
[2019-09-10] MEDS ORDERED: CITRIC ACID/SOB CIT (BICITRA) 30 ML UDC PO ONE (19:45)
[2019-09-10] MEDS ORDERED: FAMOTIDINE 20MG/2ML IV (PEPCID) IV ONE (19:45)
[2019-09-10] MEDS ORDERED: METOCLOPRAMIDE INJ 10 MG/2 ML (REGLAN) IV ONE (19:45)
--- NOTE | 2019-09-10 20:08 | NUR ---
EPIDURAL CATH REMOVED IN OR PRIOR TO ARRIVAL TO RECOVERY WITH THIS RN.
[2019-09-10] MEDS ORDERED: MEASLES,MUMPS,RUBELLA 1 EA INJ SC SCH (20:15)
[2019-09-10] MEDS ORDERED: fentaNYL INJECTION 100 MCG/2 ML AMP IVP PRN (20:15)
[2019-09-10] MEDS ORDERED: TETANUS,DIPTH,PERTUSS P/F (BOOSTRIX) 0.5 ML VIAL IM SCH (20:15)
[2019-09-10] MEDS ORDERED: ONDANSETRON 4 MG/2 ML (SDV) Z0FRAN IVP PRN (20:15)
--- NOTE | 2019-09-10 20:21 | Cesarean Section Operative ---
Procedure Procedure Note Pre-operative Diagnosis: Jackeline Bee is a (20 /Para / ,Gestational Age (wks)40 2/7 weeks 2. Repetitive Late Heart Decelerations 3. Decreased Variabilty 4. Secondary Arrest of Dilation Post-operative Diagnosis: same [and Persistent Occiput Posterior 6. Nuchal Cord x 1] Procedure: [Primary] low transverse section Physician: HAMILTON RICHARDS Janitorial Supervisor: [None] Estimated blood loss: [500] mL Disposition: [Recovery Room--stable] Findings: Viable [Male] infant, Apgars [4, 8], weight [8 lb 2 oz], intact placenta, 3vc, normal appearing uterus, tubes, and ovaries. Indications:Jackeline Bee is a (20 /Para 1 / 0,Gestational Age (wks)40 presenting for [Pitocin]. She had decreased heart variability and repetitive late heart decelerations with very little increase in dilation (from .25 cm to .5 cm). This was after Cytotec cervical ripening and Pitocin Induction of Labor Procedure Details: The patient was seen in pre-op and the procedure was discussed with the patient in full, including the risks, benefits, and alternatives. All questions were answered. The patient was taken to the operating room and a time out was performed, verifying patient and procedure. After Epidural anesthesia was dosed to surgery level the patient was placed in the dorsal supine with leftward tilt for uterine displacement.~ Her abdomen was then prepped and draped in the typical sterile fashion. A Pfannenstiel skin incision was made using a scalpel and carried down through the underlying fascia. The fascia was incised in the midline and tented up using Tomas clamps. On both the inferior and superior fascia side the rectus muscle was dissected off bluntly and sharply using Plasencia scissors. The peritoneum was identified and entered bluntly in the midline. This was then stretched laterally using manual strength. After entering the abdominal cavity and confirming lack of intraperitoneal adhesions, a large Fidel retractor was placed and the lower uterine segment was visualized. A bladder flap was created with the use of Jennifer mcguire scissors.~ A scalpel was utilized to make a low transverse uterine incision. Amniotomy was performed with an Allis clamp with return of clear fluid. The 's head was grasped and brought to the level of the incision. Fundal pressure was applied and infant was delivered without difficulty. Mouth and nares were suctioned with bulb suction. After the umbilical cord was clamped and cut, the was handed off to the pediatric staff, where NRP protocol was followed. A sample of cord blood was then obtained. The placenta was delivered intact via uterine massage. The uterus was exteriorized and cleared of all clots and debris. The uterine incision was closed using 0 Vicryl in a running locked fashion. A second imbricated layer was placed using 0 Vicryl in a running fashion as well. The uterus was flexed forward and the posterior rectouterine space was inspected and cleared of all clots and debris. Again the hysterotomy site was examined and hemostasis was observed. The bilateral tubes and ovaries appeared normal. The uterus was placed back into the abdominal cavity and abdominal gutters were cleared of all clots and debris. A final check of the uterine incision showed it to be hemostatic. The peritoneum was closed using 3-0 Vicryl in a running fashion. The fascia was closed with 0 Vicryl in a running fashion. The subcutaneous space was hemostatic, and irrigated. then reapproximated with 3-0 Plain Gut. The skin was then closed using 4-0 Monocryl in a running subcuticular fashion. The skin edges were reapproximated together and were hemostatic. A pressure dressing was applied. All sponge, lap and needle counts were correct at the end of the procedure per nursing. Ms. Bee was taken to the Recovery Room in good and stable condition. Vitals - Labs Vital Signs - I&O Vital Signs Date Time Temp Pulse Resp B/P (MAP) Pulse Ox O2 Delivery O2 Flow Rate FiO2 09/10/19 19:04 67 18 113/72 (86) 100 Non Rebreather 15.00 09/10/19 18:49 37.4 65 18 112/63 (79) 100 Non Rebreather 15.00 09/10/19 18:35 37.5 64 18 131/84 (100) 100 Non Rebreather 15.00 09/10/19 18:20 61 18 116/73 (87) 100 Non Rebreather 15.00 09/10/19 18:05 64 18 94/50 (65) 96 Room Air 09/10/19 17:49 67 18 91/53 (66) 97 Room Air 09/10/19 17:37 61 18 103/59 (74) 98 Room Air 09/10/19 17:29 37.6 09/10/19 17:20 54 18 94/53 (67) 96 Room Air 09/10/19 17:06 52 18 94/53 (67) 98 Room Air 09/10/19 16:51 60 18 99/62 (74) 98 Room Air 09/10/19 16:34 66 18 95/51 (66) 98 Room Air 09/10/19 16:20 63 18 102/65 (77) 98 Room Air 09/10/19 16:18 37.7 09/10/19 16:05 67 18 105/58 (74) 97 Room Air 09/10/19 15:49 53 18 108/61 (77) 100 Non Rebreather 15.00 09/10/19 15:35 64 18 111/75 (87) 100 Non Rebreather 15.00 09/10/19 15:28 37.5 09/10/19 15:19 56 18 119/70 (86) 100 Non Rebreather 15.00 09/10/19 15:05 45 18 113/57 (75) 100 Non Rebreather 15.00 09/10/19 14:34 74 18 102/64 (77) 100 Non Rebreather 15.00 09/10/19 14:20 51 18 97/55 (69) 100 Non Rebreather 15.00 09/10/19 14:05 52 18 94/50 (65) 100 Non Rebreather 15.00 09/10/19 14:01 37.3 09/10/19 13:49 52 18 97/62 (74) 100 Non Rebreather 15.00 09/10/19 13:36 50 18 101/58 (72) 100 Non Rebreather 15.00 09/10/19 13:20 46 18 100/63 (75) 100 Non Rebreather 15.00 09/10/19 13:04 63 18 98/61 (73) 100 Non Rebreather 15.00 09/10/19 12:50 85 18 108/66 (80) 100 Non Rebreather 15.00 09/10/19 12:37 49 18 94/50 (65) 100 Non Rebreather 15.00 09/10/19 12:26 37.5 09/10/19 12:19 58 18 115/61 (79) Non Rebreather 15.00 09/10/19 12:17 54 18 111/56 (74) Non Rebreather 15.00 09/10/19 12:10 71 18 117/59 (78) 100 Non Rebreather 15.00 09/10/19 12:04 52 18 92/55 (67) 100 Non Rebreather 15.00 09/10/19 11:59 47 18 93/53 (66) Non Rebreather 15.00 09/10/19 11:55 50 18 93/50 (64) 100 Non Rebreather 15.00 09/10/19 11:50 63 18 101/63 (76) 100 Non Rebreather 15.00 09/10/19 11:45 49 18 94/56 (69) 100 Non Rebreather 15.00 09/10/19 11:37 36.8 55 18 108/65 (79) Non Rebreather 15.00 09/10/19 11:35 64 18 102/65 (77) 99 Non Rebreather 15.00 09/10/19 11:28 64 18 96/56 (69) Non Rebreather 15.00 09/10/19 11:25 57 18 111/55 (73) 100 Non Rebreather 15.00 09/10/19 11:22 49 18 118/72 (87) 100 Non Rebreather 15.00 09/10/19 11:19 53 18 92/51 (65) Non Rebreather 15.00 09/10/19 11:16 53 18 92/53 (66) 100 Non Rebreather 15.00 09/10/19 11:13 37.2 68 18 96/57 (70) Non Rebreather 15.00 09/10/19 11:10 78 18 104/59 (74) 98 Room Air 09/10/19 11:07 79 18 103/71 (82) 91 Room Air 09/10/19 11:04 79 18 101/62 (75) 97 Room Air 09/10/19 11:01 68 18 103/64 (77) Room Air 09/10/19 10:58 70 18 124/74 (91) Room Air 09/10/19 10:55 72 18 118/74 (89) 100 Room Air 09/10/19 10:52 72 18 117/85 (96) Room Air 09/10/19 10:49 74 18 123/78 (93) 100 Room Air 09/10/19 10:37 68 18 128/80 (96) Room Air 09/10/19 10:06 57 18 119/79 (92) Room Air 09/10/19 09:51 67 18 128/78 (95) Room Air 09/10/19 09:37 61 16 130/78 (95) Room Air 09/10/19 09:28 36.8 62 16 114/76 (89) Room Air 09/10/19 08:22 67 16 125/79 (94) Room Air 09/10/19 08:06 68 16 119/59 (79) Room Air 09/10/19 07:51 59 16 121/81 (94) Room Air 09/10/19 07:37 59 16 103/55 (71) Room Air 09/10/19 07:29 36.8 09/10/19 07:20 69 16 126/88 (101) Room Air 09/10/19 07:06 61 16 122/80 (94) Room Air 09/10/19 06:20 54 16 111/66 (81) Room Air 09/10/19 06:10 61 16 111/63 (79) Room Air 09/10/19 05:50 57 16 124/79 (94) Room Air 09/10/19 05:35 60 16 108/74 (85) Room Air 09/10/19 05:20 65 16 87/52 (64) Room Air 09/10/19 04:50 69 16 110/56 (74) Room Air 09/10/19 04:20 37.0 63 16 90/53 (65) Room Air 09/10/19 03:50 69 16 91/50 (64) Room Air 09/10/19 03:20 64 16 91/51 (64) Room Air 09/10/19 02:50 69 16 109/59 (76) Room Air 09/10/19 02:20 65 16 120/67 (84) Room Air 09/10/19 01:50 64 16 110/57 (74) Room Air 09/10/19 01:20 36.6 65 16 98/55 (69) Room Air 09/10/19 00:50 68 16 96/55 (69) Room Air 09/10/19 00:20 67 16 109/73 (85) Room Air 09/09/19 23:50 81 16 102/65 (77) Room Air 09/09/19 23:20 75 16 106/67 (80) Room Air 09/09/19 22:45 71 16 102/63 (76) Room Air 09/09/19 22:25 68 16 117/76 (90) Room Air 09/09/19 21:15 77 16 105/66 (79) 99 Room Air 09/09/19 21:00 37.2 83 16 99 Room Air 09/09/19 20:30 37.2 83 16 115/72 (86) 99 Room Air I & O 09/10/19 07:00 Intake Total 2000 ml Balance 2000 ml Labs Laboratory Tests 09/09/19 20:20: White Blood Count 9.8, Red Blood Count 4.25L, Hemoglobin 12.1, Hematocrit 36, Mean Corpuscular Volume 84, Mean Corpuscular Hemoglobin 29, Mean Corpuscular Hemoglobin Concent 34, Red Cell Distribution Width 13.4, Platelet Count 261, Mean Platelet Volume 11.0H, Neutrophils (%) (Auto) 67, Lymphocytes (%) (Auto) 26, Monocytes (%) (Auto) 7, Eosinophils (%) (Auto) 1, Basophils (%) (Auto) 0, Neutrophils # (Auto) 6.5, Lymphocytes # (Auto) 2.5, Monocytes # (Auto) 0.7, Eosinophils # (Auto) 0.1, Basophils # (Auto) 0.0 HAMILTON RICHARDS DO Sep 10, 2019 20:20
[2019-09-10] MEDS ORDERED: ZOLPIDEM 5 MG (AMBIEN) TAB PO SCH (21:00)
[2019-09-10] MEDS: KETOROLAC 30 MG/ML VIAL IV SCH (21:21)
[2019-09-10] MEDS: METOCLOPRAMIDE 10 MG (REGLAN) TAB PO SCH (21:21)
[2019-09-10] MEDS: DOCUSATE SODIUM 100 MG (COLACE) CAP PO SCH (21:25)
--- NOTE | 2019-09-10 21:25 | NUR ---
This rn notified nursery rn who is present at bedside at this time of ambien administration to pt - infants mother r/t safety.
[2019-09-11] VITALS: BP 115/74
[2019-09-11 03:25] VITALS: BP 135/85
[2019-09-11] MEDS: ACETAMINOPHEN 500 MG TAB (TYLENOL) PO SCH ×4 (03:26→16:15)
[2019-09-11] MEDS: METOCLOPRAMIDE 10 MG (REGLAN) TAB PO SCH (03:26)
[2019-09-11] MEDS: KETOROLAC 30 MG/ML VIAL IV SCH ×3 (03:26→16:16)
[2019-09-11] MEDS ORDERED: MILK OF MAGNESIA 400 MG/5 ML 30 ML UDC PO SCH (05:00)
[2019-09-11] MEDS ORDERED: BISACODYL 10 MG SUPP (DULCOLAX) PR SCH (05:00)
--- NOTE | 2019-09-11 05:55 | NUR ---
Pt up standby to bathroom, pt reports bowel movement. No urination reported.
--- NOTE | 2019-09-11 06:01 | NUR ---
DR. RICHARDS PREFERS TO REMOVE ABD DRSG FROM CSECTION. INTERVENTION NOT COMPLETED
[2019-09-11 06:41] LABS: BASOPHILS % (AUTO) 0 % (0-10); EOSINOPHILS % (AUTO) 0 % (0-10); HEMATOCRIT 36 % (35-52); HEMOGLOBIN 12.1 G/DL (11.5-16.0); LYMPHOCYTES # (AUTO) 2.1 X 10^3 (1.0-4.0); LYMPHOCYTES % (AUTO) 16 % (12-44); MEAN CORPUSCULAR HEMOGLOBIN 28 PG (25-34); MEAN CORPUSCULAR HGB CONC 33 G/DL (32-36); MEAN CORPUSCULAR VOLUME 85 FL (80-99); MEAN PLATELET VOLUME 11.1 FL (7.4-10.4); MONOCYTES % (AUTO) 8 % (0-12); NEUTROPHILS # (AUTO) 9.8 X 10^3 (1.8-7.8); NEUTROPHILS % (AUTO) 76 % (42-75); PLATELET COUNT 241 10^3/uL (130-400); RED CELL DISTRIBUTION WIDTH 13.6 % (10.0-14.5)
--- NOTE | 2019-09-11 06:45 | Anesthesia-Regional Post-Op ---
Regional Patient Condition Mental Status: Alert, Oriented x3 Circulation: Same as Pre-Op Headache: Absent Sensation: Full Recovery Motor Block: Absent Post Op Complications Complications None Follow Up Care/Instructions Patient Instructions None needed. Anesthesia/Patient Condition Patient is doing well, no complaints, stable vital signs, no apparent adverse anesthesia problems. No complications reported per nursing. DEV GOMES CRNA Sep 11, 2019 06:45
[2019-09-11] MEDS ORDERED: OXC5T PO (08:02)
[2019-09-11] MEDS ORDERED: IBUP-1780 PO (08:02)
[2019-09-11] MEDS ORDERED: DCS100C PO (08:02)
[2019-09-11] MEDS ORDERED: ACET-93 PO (08:02)
--- NOTE | 2019-09-11 08:11 | Discharge Summary ---
Diagnosis/Chief Complaint Date of Admission Sep 09, 2019 at 20:06 Date of Discharge September 11, 2019 Discharge Date: Sep 11, 2019 Discharge Time: 20:00 Admission Diagnosis Admission Diagnosis Intrauterine at 40 2/7 weeks Discharge Diagnosis Intrauterine at 40 2/7 weeks--delivered 2. Repetitive Late Decelerations 3. Decreased Heart Variability 4. Secondary Arrest of Dilation 5. Persistent Occiput Posterior 7. Nuchal Cord X 1 Reason Hospital Visit Ms. Bee, , at 40 2/7 weeks gestation, was admitted for Cytotec Cervical Ripening, followed by Pitocin Induction of Labor Discharge Summary Hospital Course Was the Problem List Reviewed?: Yes Hospital Course Ms. Bee, at 40 2/7 weeks, was admitted for Cytotec Cervical Ripening followed by Pitocin Induction. Upon admission her cervix was closed. She never progressed pass 1 cm. While in labor, having adequate contractions, she started having late heart decelerations with decreased variability. After discussing this with & Mrs. Bee, it was decided to proceed with an immediate . The was performed without complications--a healthy viable male , 8 lbs 2 oz in occiput posterior presentation and a nuchal cord. She was started on IV and oral pain medications on her day of surgery with other comfort measures. Postoperative Day #1 found Ms. Bee voiding freely, moving her bowels, tolerating a Regular Diet, ambulating, controlling her pain with oral medications. Her vital signs remained stable throughout her hospitalization. I will discharge her to home with instructions, prescriptions, and a follow up appointment. Labs Laboratory Tests 09/09/19 20:05: Urine Leukocyte Esterase 2+H, Urine WBC 5-10H 09/09/19 20:20: Red Blood Count 4.25L, Mean Platelet Volume 11.0H 09/11/19 06:10: Red Blood Count 4.29L, Mean Platelet Volume 11.1H, White Blood Count 13.0H, Neutrophils (%) (Auto) 76H, Neutrophils # (Auto) 9.8H Procedures None. Discharge Physical Examination Allergies: Coded Allergies: No Known Drug Allergies (Unverified , 09/09/19) Vitals & I&Os Vital Signs Date Time Temp Pulse Resp B/P (MAP) Pulse Ox O2 Delivery O2 Flow Rate FiO2 09/11/19 03:25 38.1 71 18 135/85 (102) 99 Room Air 09/10/19 19:04 15.00 General Appearance: Alert, Oriented X3, Cooperative HEENT: Atraumatic Respiratory: Clear to Auscultation, Normal Air Movement Cardiovascular: Regular Rate, No Murmurs Abdominal: Normal Bowel Sounds, Soft, Other (Incision is clean, dry and well approximated, mildly tender with palpation) Extremities: No Clubbing, No Cyanosis Skin: No Rashes Neuro: Normal Gait, Normal Speech Psych/Mental Status: Mental Status NL Discharge Home Medications Reviewed and agree with Discharge Medication list on patient's Discharge Instruction sheet Instructions to Patient/Family Please see electronic discharge instructions given to patient. Clinical Quality Measures DVT/VTE Risk/Contraindication: Risk Factor Score Per Nursin RFS Level Per Nursing on Admit: 1=Low/No VTE PPX HAMILTON RICHARDS DO Sep 11, 2019 08:11
[2019-09-11 08:30] VITALS: BP 116/79
[2019-09-11] MEDS: DOCUSATE SODIUM 100 MG (COLACE) CAP PO SCH (09:31)
[2019-09-11 12:15] VITALS: BP 121/84
[2019-09-11] MEDS: CATHETER FLUSH 10 ML SYR IV SCH (14:00)
[2019-09-11 16:36] VITALS: BP 112/72
--- NOTE | 2019-09-11 18:45 | NUR ---
Discharge instructions, Rx and appointments given to pt verbally and hard copy received. Pt verbalizes understanding and verifies via signature.
[2019-09-11] MEDS ORDERED: IBUPROFEN 800 MG (MOTRIN) TAB PO ONE ×2 (20:20→20:30)
[2019-09-11 20:29] VITALS: BP 116/74
--- NOTE | 2019-09-11 21:10 | NUR ---
Pt off unit via wc accompanied by s.o and staff member to private vehicle. no ss distress.
== END 2019-09-11 21:10 | disposition home or self-care (01) | DRG 788 ==
LOC: LDRP 20:06
PROVIDERS: ADMIT Obstetrics & Gynecology; ATTEND Obstetrics & Gynecology
PROC: 3E033VJ Introduction of Other Hormone into Peripheral Vein, Percutaneous Approach (ICD-10-PCS; 2019-09-10)
PROC: 10D00Z1 Extraction of Products of Conception, Low, Open Approach (ICD-10-PCS; principal; 2019-09-10 19:10)
DX: O48.0 Post-term pregnancy (principal); O76 Abnormality in fetal heart rate and rhythm complicating labor and delivery; O62.1 Secondary uterine inertia; O64.0XX0 Obstructed labor due to incomplete rotation of fetal head, not applicable or unspecified; O69.81X0 Labor and delivery complicated by cord around neck, without compression, not applicable or unspecified; Z37.0 Single live birth; Z3A.40 40 weeks gestation of pregnancy
CPT/HCPCS: 36415; 81000; 85025; 86850; 86900; 86901; 87088

== ENCOUNTER → 2020-11-13 | Outpatient (CLI) | payer SELFPAY ==
[~2020-11-13] MED LIST: ACET-93 PO; DCS100C PO; IBUP-1780 PO; OXC5T PO
[2020-11-13 14:35] LABS: HEMATOCRIT 32 % (35-52); HEMOGLOBIN 10.4 G/DL (11.5-16.0); MEAN CORPUSCULAR HEMOGLOBIN 29 PG (25-34); MEAN CORPUSCULAR HGB CONC 33 G/DL (32-36); MEAN CORPUSCULAR VOLUME 87 FL (80-99); MEAN PLATELET VOLUME 10.4 FL (7.4-10.4); PLATELET COUNT 276 10^3/uL (130-400); WHITE BLOOD COUNT 13.2 10^3/uL (4.3-11.0)
== END ==
LOC: LAB FS 13:28
PROVIDERS: ATTEND Family Medicine
DX: Z34.90 Encounter for supervision of normal pregnancy, unspecified, unspecified trimester (principal); Z3A.00 Weeks of gestation of pregnancy not specified
CPT/HCPCS: 36415; 85027; 86703; 86762; 86780; 86850; 86900; 86901; 87088; 87340

== ENCOUNTER 2021-02-03 05:32 | Outpatient (CLI) | payer SELFPAY ==
[~2021-02-03] VITALS: Ht 157.5 cm; Wt 77.3 kg
== END 2021-02-03 11:46 | disposition home or self-care (01) ==
LOC: PREOP 05:32
PROVIDERS: ATTEND Obstetrics & Gynecology
DX: Z01.818 Encounter for other preprocedural examination (principal)
CPT/HCPCS: 87081

== ENCOUNTER 2021-02-09 06:15 | Inpatient (IN) | payer OTHER ==
[~2021-02-09] VITALS: Ht 157.5 cm; Wt 77.2 kg
[2021-02-09] VITALS (12 sets, daily range): BP systolic 80–116; BP diastolic 52–66
[2021-02-09] MEDS ORDERED: FAMOTIDINE 20MG/2ML IV (PEPCID) IV ONE (06:45)
[2021-02-09] MEDS ORDERED: METOCLOPRAMIDE INJ 10 MG/2 ML (REGLAN) IV ONE (06:45)
[2021-02-09] MEDS ORDERED: CITRIC ACID/SOB CIT (BICITRA) 30 ML UDC PO ONE (06:45)
[2021-02-09] MEDS ORDERED: LACTATED RINGERS 1,000 ML IV PRN ×2 (06:45)
[2021-02-09] MEDS ORDERED: ceFAZolin 2 GM IV Premixed 50 ML IV ONE (06:45)
[2021-02-09 06:46] LABS: BASOPHILS % (AUTO) 0 % (0-10); EOSINOPHILS # (AUTO) 0.2 10^3/uL (0.0-0.3); EOSINOPHILS % (AUTO) 2 % (0-10); HEMATOCRIT 30 % (35-52); HEMOGLOBIN 9.9 g/dL (11.5-16.0); LYMPHOCYTES % (AUTO) 32 % (12-44); MEAN CORPUSCULAR HEMOGLOBIN 28 pg (25-34); MEAN CORPUSCULAR HGB CONC 33 g/dL (32-36); MEAN CORPUSCULAR VOLUME 85 fL (80-99); MEAN PLATELET VOLUME 11.1 fL (9.0-12.2); MONOCYTES # (AUTO) 1.3 10^3/uL (0.0-1.0); MONOCYTES % (AUTO) 10 % (0-12); NEUTROPHILS # (AUTO) 6.8 10^3/uL (1.8-7.8); NEUTROPHILS % (AUTO) 55 % (42-75); PLATELET COUNT 313 10^3/uL (130-400); WHITE BLOOD COUNT 12.5 10^3/uL (4.3-11.0)
[2021-02-09] MEDS ORDERED: ONDANSETRON 4 MG/2 ML (SDV) Z0FRAN ONE (07:01)
[2021-02-09] MEDS ORDERED: fentaNYL INJ 100 MCG/2 ML AMP ONE (07:01)
[2021-02-09] MEDS ORDERED: OXYTOCIN PRE-MIX DRIP 1,000 ML IV ONE (07:01)
--- NOTE | 2021-02-09 07:21 | History & Physical-OB ---
OB - Chief Complaint & HPI Date/Time Date of Admission: Date of Admission: Feb 09, 2021 at 06:15 Date seen by a Provider: Feb 09, 2021 Time Seen by a Provider: 07:15 Chief Complaint/History OB-Reason for Admission/Chief: Section Hx : 2 Hx Para: 1 Expected Date of Delivery: Feb 15, 2021 Gestational Age in Weeks: 39 Gestational Age in Days: 1 Indication for : desires repeat Admission Nurse Assessment Rev: Yes Other A pos Antibody neg RNI RPR NR HBsAg NR HIV NR GC neg GBS pos Allergies and Home Medications Allergies Coded Allergies: No Known Drug Allergies (Unverified , 09/09/19) Home Medications No Active Prescriptions or Reported Meds Patient Home Medication List Home Medication List Reviewed: Yes OB - History Hx of Present Care: Yes Ultrasounds: Normal mid trimester US Obstetrical Complications: None Medical Complications: None Delivery History Adverse Rxn to Tranfusion: No Patient Past Medical History n/a Immunizations Tetanus Booster (TDap): Unknown OB - Admission Exam Physical Exam Vitals: Vital Signs 02/09/21 06:47 Temp 36.4 Pulse 94 Resp 18 B/P (MAP) 91/52 (65) Pulse Ox 98 O2 Delivery Room Air HEENT: NCAT Heart: Rhythm Normal Lungs: Clear Abdomen: Gravid Extremities: Normal Reflexes: Normal Heart Rate: 130's Accelerations: Accelerations Present Decelerations: No Decelerations Short Term Variability: Present Halfway Variability: Average (6-25) Contractions on Admission: 6-10 Minutes Apart Intensity: Moderate Labs Laboratory Tests Test 02/09/21 06:35 Range/Units White Blood Count 12.5 H 4.3-11.0 10^3/uL Red Blood Count 3.56 L 3.80-5.11 10^6/uL Hemoglobin 9.9 L 11.5-16.0 g/dL Hematocrit 30 L 35-52 % Mean Corpuscular Volume 85 80-99 fL Mean Corpuscular Hemoglobin 28 25-34 pg Mean Corpuscular Hemoglobin Concent 33 32-36 g/dL Red Cell Distribution Width 14.1 10.0-14.5 % Platelet Count 313 130-400 10^3/uL Mean Platelet Volume 11.1 9.0-12.2 fL Immature Granulocyte % (Auto) 1 % Neutrophils (%) (Auto) 55 42-75 % Lymphocytes (%) (Auto) 32 12-44 % Monocytes (%) (Auto) 10 0-12 % Eosinophils (%) (Auto) 2 0-10 % Basophils (%) (Auto) 0 0-10 % Neutrophils # (Auto) 6.8 1.8-7.8 10^3/uL Lymphocytes # (Auto) 4.0 1.0-4.0 10^3/uL Monocytes # (Auto) 1.3 H 0.0-1.0 10^3/uL Eosinophils # (Auto) 0.2 0.0-0.3 10^3/uL Basophils # (Auto) 0.0 0.0-0.1 10^3/uL Immature Granulocyte # (Auto) 0.1 0.0-0.1 10^3/uL OB - Assessment/Plan/Diagnosis Assessment Assessment: section Admission Dx 20 yo @ 39.1 Previous GBS pos Admission Status: Inpatient Order (span 2 midnights) Reason for Inpatient Admission: Repeat at 39 weeks Plan Plan: Section DINO HURT DO Feb 09, 2021 07:21
--- NOTE | 2021-02-09 07:29 | Discharge Inst-Women's Service ---
Discharge Inst-Women's Serv Depart Medication/Instructions New, Converted or Re-Newed RX: RX on Chart Final Diagnosis PO day 2 RLTCS Problems Reviewed?: Yes Consults/Follow Up Additional Follow Up: Yes Orders/Referrals Dr. Paredes in 7-[address] Richardson in 6 weeks Activity Activity: Activity as Tolerated Driving Instructions: No Driving for 1 Week NO SMOKING: NO SMOKING Nothing Inside Vagina: No Douching, No [place], No Tampons Diet Discharge Diet: No Restrictions Symptoms to Report to : Bleeding Excessive, Pain Increased, Fever Over 101 Degrees F, Vaginal Bleeding Increase, Questions/Concerns For Any Problems or Questions: Contact Your Physician Skin/Wound Care Infection Signs and Symptoms: Increased Redness, Foul Odor of Wound, Increased Drainage, Skin Itchy or Has a Rash, Increased Swelling, Temperature Above 101 F Operative Area Clean and Dry: Keep Incision Clean/Dry Stitches/Carol/Dermabond: Dermabond, Care of Stitches Bathing Instructions: DINO Be DO Feb 09, 2021 07:29
[2021-02-09] MEDS ORDERED: TETANUS,DIPTH,PERTUSS P/F (BOOSTRIX) 0.5 ML VIAL IM SCH (07:30)
[2021-02-09] MEDS ORDERED: ONDANSETRON 4 MG/2 ML (SDV) Z0FRAN IVP PRN (07:30)
[2021-02-09] MEDS ORDERED: DCS100C PO (07:30)
[2021-02-09] MEDS ORDERED: HYDROcodone/APAP 5 MG/325 MG (LORTAB) TAB PO PRN (07:30)
[2021-02-09] MEDS ORDERED: IBUP-844 PO (07:30)
[2021-02-09] MEDS ORDERED: MEASLES,MUMPS,RUBELLA 1 EA INJ SC SCH (07:30)
[2021-02-09] MEDS ORDERED: NALOXONE 0.4 MG/ML 1 ML (NARCAN) VIAL IV PRN (07:30)
[2021-02-09] MEDS ORDERED: ACHD5005 PO (07:30)
[2021-02-09] MEDS ORDERED: PHENYLEPHRINE 100 MCG/ML 10 ML (ANESTHESIA) SYR ONE (07:39)
[2021-02-09] MEDS ORDERED: BUPIVACAINE 0.5% 30 ML (SENSORCAINE) VIAL ONE (07:46)
[2021-02-09] MEDS ORDERED: METHYLERGONOVINE 0.2 MG/ML (METHERGINE) AMP ONE (07:57)
[2021-02-09] MEDS ORDERED: KETOROLAC 30 MG/ML VIAL ONE (09:36)
[2021-02-09] MEDS: KETOROLAC 30 MG/ML VIAL IV SCH ×2 (09:38→16:56)
[2021-02-09] MEDS: DOCUSATE SODIUM 100 MG (COLACE) CAP PO SCH ×2 (09:38→20:49)
[2021-02-09] MEDS: OXYTOCIN PRE-MIX DRIP 500 ML IV SCH ×2 (11:35→15:44)
[2021-02-09] MEDS ORDERED: D5 LR IV SOLUTION 1,000 ML IV ONE (15:42)
--- NOTE | 2021-02-09 19:31 | OPERATIVE REPORT ---
DATE OF SERVICE: PREOPERATIVE DIAGNOSES: 1. A 20-year-old G2, P1 at 39 weeks gestation. 2. Previous section. POSTOPERATIVE DIAGNOSES: 1. A 20-year-old G2, P1 at 39 weeks gestation. 2. Previous section. PROCEDURE: Repeat low transverse section. SURGEON: Abimael Hurt DO MARRIAGE AND FAMILY SOCIAL WORKER: Aida Mckeon DNP, was necessary for manipulation and retraction throughout the procedure. ANESTHESIA: Spinal. ESTIMATED BLOOD LOSS: 600 mL. URINE OUTPUT: 50 mL clear at the end of the procedure. FLUIDS: 2000 mL lactated Ringer's solution. FINDINGS: A live male weighing 7 pounds 8 ounces, Apgars of 8 and 8. Grossly normal appearing uterus, bilateral fallopian tubes and ovaries. SPECIMEN SENT: None. INDICATIONS FOR PROCEDURE: This 20-year-old female is a patient, who had sought care with Dr. Richardson in [place]. She lives in an [facility] and her care was somewhat limited; however, she did have labs and ultrasound. She met with me approximately 35 weeks to discuss repeat . Risks of procedure were discussed with the patient in detail including risk of bleeding, infection, damage to surrounding structures including, but not limited to bowel, bladder, ureter, kidneys, possible need for operation, postoperative complications that may occur, risk from anesthesia, recovery timeframe and even . After everything was discussed with the patient in detail, consent was obtained in the preoperative area, the patient was taken to the operating room. OPERATIVE REPORT IN DETAIL: Once in the operating room and spinal analgesia was found to be adequate, placed in supine position with leftward tilt, prepped and draped in normal sterile fashion. Timeout was performed and anesthesia was tested. A Pfannenstiel skin incision was then made through the previously existing scar using knife and carried down to underlying fascia using Bovie cautery. The fascial incision extended laterally using Bovie cautery. Superior aspect of fascial incision was then grasped with Tomas clamps, tented up and dissected off the underlying rectus muscles. Inferior aspect of fascial incision was then grasped with Tomas clamps, tented up and dissected off the underlying rectus muscles. The rectus muscles were then dissected down the midline using sharp dissection, which exposed the peritoneum, which I entered bluntly and extended using blunt traction. Fidel ring retractor was placed in the peritoneal incision, which offered excellent lateral sidewall retraction. I identified the lower uterine segment, which was found to be thinned out and make a low transverse incision to the vesicouterine peritoneum and bluntly dissected off the lower uterine segment, creating a bladder flap. I then proceeded with my myotomy until membranes were visualized, at which point I extended uterine incision laterally and superiorly using bandage scissors. The infant was found in vertex presentation. With gentle fundal pressure, the 's head was elevated to the incision were delivered through the incision. The nares and oropharynx were bulb suctioned. Anterior and posterior shoulders were delivered. Infant was then brought to the operative field with cord doubly clamped and cut and was handed off to waiting nurses in attendance. Cord blood was collected, 3-vessel cord with intact placenta was delivered spontaneously thereafter. IV Pitocin was initiated to facilitate uterine contraction. Uterine fundus confirmed by manual massage. Uterus was then exteriorized and cleared of all endometrial clots and debris. I then proceeded with closing the uterine incision using 0 Vicryl suture in a running locked fashion. Second layer of imbricating 0 Monocryl was placed. Excellent hemostasis was noted after doing this. I then placed the uterus back in the pelvis and copiously irrigated the pelvis using normal saline. Once again, there was no active bleeding noted from any of my dissection planes. I placed Interceed antiadhesive over my low transverse incision. There is some mild bogginess noted into the uterus and therefore, anesthesia administered 0.2 mg of Methergine IM to help with postop bleeding. After the Fidel ring retractor was removed, reapproximate the peritoneum using 3-0 Vicryl suture in a running fashion. The rectus muscle reapproximated using 3-0 Vicryl suture in interrupted fashion. The fascia was reapproximated using 0 Vicryl suture in running fashion and the subcutaneous tissue was reapproximated using 3-0 plain interrupted subcutaneous stitch and the skin reapproximated using 4-0 Monocryl running subcuticular. Dermabond was applied to incision and sterile dressing with adhesive white tape. The patient tolerated the procedure well and sent to recovery area in stable condition. Lap and sponge counts were correct at the end of the procedure. Instrument counts correct as well. Two grams of Ancef were given preoperatively for infection prophylaxis. Job ID: [id number] DocumentID: [id number] Dictated Date: 02/09/2021 11:10:54 Director Of Planning Date: 02/09/2021 19:30:56 Dictated By: ABIMAEL HURT DO
[2021-02-09] MEDS: CATHETER FLUSH 10 ML SYR IV SCH (20:31)
[2021-02-10 00:59] VITALS: BP 105/61
[2021-02-10] MEDS: KETOROLAC 30 MG/ML VIAL IV SCH ×2 (00:59→06:15)
[2021-02-10] MEDS: CATHETER FLUSH 10 ML SYR IV SCH ×2 (00:59→06:16)
[2021-02-10 03:45] VITALS: BP 109/54
[2021-02-10 06:37] LABS: BASOPHILS % (AUTO) 0 % (0-10); EOSINOPHILS # (AUTO) 0.1 10^3/uL (0.0-0.3); EOSINOPHILS % (AUTO) 1 % (0-10); HEMATOCRIT 29 % (35-52); HEMOGLOBIN 9.1 g/dL (11.5-16.0); LYMPHOCYTES # (AUTO) 2.4 10^3/uL (1.0-4.0); LYMPHOCYTES % (AUTO) 23 % (12-44); MEAN CORPUSCULAR HEMOGLOBIN 28 pg (25-34); MEAN CORPUSCULAR HGB CONC 31 g/dL (32-36); MEAN CORPUSCULAR VOLUME 89 fL (80-99); MEAN PLATELET VOLUME 11.4 fL (9.0-12.2); MONOCYTES % (AUTO) 9 % (0-12); NEUTROPHILS # (AUTO) 6.9 10^3/uL (1.8-7.8); NEUTROPHILS % (AUTO) 66 % (42-75); PLATELET COUNT 291 10^3/uL (130-400); WHITE BLOOD COUNT 10.5 10^3/uL (4.3-11.0)
[2021-02-10 08:00] VITALS: BP 99/64
[2021-02-10] MEDS: DOCUSATE SODIUM 100 MG (COLACE) CAP PO SCH ×2 (09:30→23:36)
--- NOTE | 2021-02-10 09:30 | Postpartum Progress Note ---
Note Note Day # 1 Subjective: Patient is without complaints. Ambulating, voiding. Tolerating a regular diet without nausea or vomiting. Normal lochia. Pain is well controlled with oral pain medications. Breast feeding. Objective: Physical Exam: General - Alert and oriented, no apparent distress Abdomen - Soft, appropriately tender to palpation, non-distended, fundus firm at umbilicus; incision c/d/i Extremities - no edema, negative Deangelo's bilaterally Assessment: Post- day # 1, status post repeat section. Recovering well, hemodynamically stable Acute blood loss anemia Plan: Routine care. Encourage breast feeding. Encourage ambulation. Ferrous sulfate supplementation. Plan for discharge tomorrow, 02/11 Vitals - Labs Vital Signs - I&O Vital Signs Date Time Temp Pulse Resp B/P (MAP) Pulse Ox O2 Delivery O2 Flow Rate FiO2 02/10/21 03:45 36.4 78 18 109/54 (72) 99 Room Air 02/10/21 00:59 36.1 71 18 105/61 (76) 99 Room Air 02/09/21 20:49 36.0 70 18 103/58 (73) 100 Room Air 02/09/21 17:37 36.6 75 18 116/63 (80) 97 Room Air 02/09/21 15:45 36.7 68 16 112/66 (81) Room Air 02/09/21 09:30 36.8 75 18 107/57 (74) 97 Room Air I & O 02/10/21 07:00 Intake Total 1850 ml Output Total 1450 ml Balance 400 ml Labs Laboratory Tests 02/10/21 05:55: White Blood Count 10.5, Red Blood Count 3.28L, Hemoglobin 9.1L, Hematocrit 29L, Mean Corpuscular Volume 89, Mean Corpuscular Hemoglobin 28, Mean Corpuscular Hemoglobin Concent 31L, Red Cell Distribution Width 14.2, Platelet Count 291, Mean Platelet Volume 11.4, Immature Granulocyte % (Auto) 1, Neutrophils (%) (Auto) 66, Lymphocytes (%) (Auto) 23, Monocytes (%) (Auto) 9, Eosinophils (%) (Auto) 1, Basophils (%) (Auto) 0, Neutrophils # (Auto) 6.9, Lymphocytes # (Auto) 2.4, Monocytes # (Auto) 1.0, Eosinophils # (Auto) 0.1, Basophils # (Auto) 0.0, Immature Granulocyte # (Auto) 0.1 MADDIE FARAH APRN Feb 10, 2021 09:30
[2021-02-10] MEDS: IBUPROFEN 600 MG (MOTRIN) TAB PO SCH ×3 (12:05→23:36)
[2021-02-10 13:25] VITALS: BP 112/69
--- NOTE | 2021-02-10 15:52 | Anesthesia-Regional Post-Op ---
Regional Patient Condition Mental Status: Alert, Oriented x3 Circulation: Same as Pre-Op Headache: Absent Sensation: Full Recovery Motor Block: Absent Post Op Complications Complications None Follow Up Care/Instructions Patient Instructions None needed. Anesthesia/Patient Condition Patient is doing well, no complaints, stable vital signs, no apparent adverse anesthesia problems. No complications reported per nursing. DEV GOMES CRNA Feb 10, 2021 15:52
[2021-02-10 18:05] VITALS: BP 105/58
[2021-02-10 23:36] VITALS: BP 116/71
[2021-02-11 04:58] VITALS: BP 107/69
[2021-02-11] MEDS: IBUPROFEN 600 MG (MOTRIN) TAB PO SCH (04:58)
--- NOTE | 2021-02-11 08:43 | Postpartum Progress Note ---
Note Note Day # 2 Subjective: Patient is without complaints. Ambulating, voiding. Tolerating a regular diet without nausea or vomiting. Normal lochia. Pain is well controlled with oral pain medications. Objective: Physical Exam: General - Alert and oriented, no apparent distress Abdomen - Soft, appropriately tender to palpation, non-distended, fundus firm at umbilicus Extremities - no edema, negative Deangelo's bilaterally Incision- c/d/i Assessment: POD 2 RLTCS Plan: Routine care. Encourage breast feeding. Encourage ambulation. Ferrous sulfate supplementation. Plan for discharge today Vitals - Labs Vital Signs - I&O Vital Signs Date Time Temp Pulse Resp B/P (MAP) Pulse Ox O2 Delivery O2 Flow Rate FiO2 02/11/21 04:58 37.3 79 16 107/69 (82) 99 Room Air 02/10/21 23:36 36.3 78 16 116/71 (86) 100 Room Air 02/10/21 18:05 36.6 76 16 105/58 (74) 100 Room Air 02/10/21 13:25 36.8 77 16 112/69 (83) 100 Room Air DINO HURT DO Feb 11, 2021 8:43 am
[2021-02-11 09:20] VITALS: BP 107/62
[2021-02-11] MEDS: DOCUSATE SODIUM 100 MG (COLACE) CAP PO SCH (09:45)
[2021-02-11 11:30] VITALS: BP 107/62
== END 2021-02-11 11:45 | disposition home or self-care (01) | DRG 787 ==
LOC: LDRP 06:15
PROVIDERS: ADMIT Obstetrics & Gynecology; ATTEND Obstetrics & Gynecology
PROC: 10D00Z1 Extraction of Products of Conception, Low, Open Approach (ICD-10-PCS; principal; 2021-02-09 07:27)
DX: O34.211 Maternal care for low transverse scar from previous cesarean delivery (principal); D62 Acute posthemorrhagic anemia; O99.824 Streptococcus B carrier state complicating childbirth; Z3A.39 39 weeks gestation of pregnancy; Z37.0 Single live birth; O90.81 Anemia of the puerperium
CPT/HCPCS: 36415; 85025; 86780; 86850; 86900; 86901; 94664

== ENCOUNTER 2021-12-17 02:38 | Inpatient (IN) | payer OTHER ==
[2021-12-17] VITALS (16 sets, daily range): BP systolic 61–129; BP diastolic 52–99
[~2021-12-17 02:38] MED LIST changes: +ACHD5005 PO; -DCS100C PO; +DOCU-239 PO; +IBUP-844 PO
[2021-12-17] MEDS ORDERED: NS IV 500 ML 500 ML IV SCH ×2 (02:45→09:15)
[2021-12-17 03:08] LABS: BASOPHILS % (AUTO) 0 % (0-10); EOSINOPHILS # (AUTO) 0.1 10^3/uL (0.0-0.3); EOSINOPHILS % (AUTO) 1 % (0-10); LYMPHOCYTES # (AUTO) 2.6 10^3/uL (1.0-4.0); LYMPHOCYTES % (AUTO) 27 % (12-44); MEAN CORPUSCULAR HEMOGLOBIN 26 pg (25-34); MEAN CORPUSCULAR HGB CONC 32 g/dL (32-36); MEAN CORPUSCULAR VOLUME 81 fL (80-99); MEAN PLATELET VOLUME 9.9 fL (9.0-12.2); MONOCYTES # (AUTO) 0.6 10^3/uL (0.0-1.0); MONOCYTES % (AUTO) 7 % (0-12); NEUTROPHILS % (AUTO) 64 % (42-75); PLATELET COUNT 114 10^3/uL (130-400); WHITE BLOOD COUNT 9.4 10^3/uL (4.3-11.0)
[2021-12-17 03:10] LABS: HEMATOCRIT 20 % (35-52); HEMOGLOBIN 6.3 g/dL (11.5-16.0)
[2021-12-17] MEDS ORDERED: METHYLERGONOVINE 0.2 MG/ML (METHERGINE) AMP ONE (03:12)
[2021-12-17] MEDS ORDERED: SEVOFLURANE (ULTANE) 15 ML INHAL SOLN ONE (03:30)
[2021-12-17] MEDS ORDERED: SUCCINYLCHOLINE INJ 20 MG/1 ML 10 ML VIAL ONE (03:31)
[2021-12-17] MEDS ORDERED: proPOfol 200 MG/20 ML (DIPRIVAN) VIAL IV ONE (03:31)
[2021-12-17] MEDS ORDERED: MIDAZOLAM 2 MG/2 ML (VERSED) VIAL ONE (03:33)
[2021-12-17] MEDS ORDERED: ceFAZolin 2 GM IV Premixed 50 ML ONE (03:37)
[2021-12-17 03:48] LABS: POTASSIUM 3.9 MMOL/L (3.6-5.0)
[2021-12-17] MEDS ORDERED: NEOSTIGMINE 3 MG/3 ML VIAL ONE (03:51)
[2021-12-17] MEDS ORDERED: GLYCOPYRROLATE 0.2 MG/ML (ROBINUL) 2 ML VIAL ONE (03:51)
[2021-12-17 04:16] LABS: BILIRUBIN,TOTAL 0.3 MG/DL (0.1-1.0)
[2021-12-17 04:28] LABS: ALBUMIN 2.6 GM/DL (3.2-4.5); CREATININE SERUM 0.68 MG/DL (0.60-1.30); TOTAL PROTEIN 4.9 GM/DL (6.4-8.2)
[2021-12-17] MEDS ORDERED: ONDANSETRON 4 MG/2 ML (SDV) Z0FRAN IVP PRN (04:30)
[2021-12-17] MEDS ORDERED: morphine INJ 10 MG/ML 1ML (SYR OR VIAL) IVP ONE (04:30)
[2021-12-17] MEDS ORDERED: ROCURONIUM 50 MG/5 ML (ZEMURON) VIAL IV ONE (04:30)
[2021-12-17] MEDS ORDERED: MEPERIDINE (DEMEROL) INJ 50 MG/ML IVP ONE (04:30)
[2021-12-17] MEDS ORDERED: LACTATED RINGERS 1,000 ML IV PRN (04:30)
[2021-12-17] MEDS ORDERED: fentaNYL INJ 100 MCG/2 ML AMP IVP ONE (04:30)
[2021-12-17] MEDS ORDERED: HYDROmorphone 2 MG/ML VIAL (DILAUDID) IV ONE (04:30)
[2021-12-17] MEDS: morphine INJ 4 MG/ML 1 ML (VIAL/SYRINGE) IV PRN ×3 (04:41→14:25)
--- NOTE | 2021-12-17 04:43 | History & Physical-OB ---
OB - Chief Complaint & HPI Date/Time Date of Admission: Date of Admission: Date seen by a Provider: Dec 17, 2021 Time Seen by a Provider: 04:40 Chief Complaint/History OB-Reason for Admission/Chief: Obstetrical Complication Hx : 3 Hx Para: 2 Expected Date of Delivery: Jan 01, 2022 Gestational Age in Weeks: 37 Gestational Age in Days: 6 Indication for : other (placental abruption, absence of FHR, previous x 2) Other Patient presented to OB by EMS with known hemorrhage. No heart rate had been attempted to be obtained prior to arrival. Per EMS report had soaked through 4 large towels but bleeding had slowed in route. Patient reports onset of bleeding and pain immediately prior to calling for EMS transport. Denies trauma. Denies complications of . Patient is from our local [facility] and has seen Dr. Richardson once in the . Denies leaking of fluid. Allergies and Home Medications Allergies Coded Allergies: No Known Drug Allergies (Unverified , 09/09/19) Patient Home Medication List Home Medication List Reviewed: Yes (PNLs only) Docusate Sodium (Dok) 100 Mg Capsule, 100 MG PO BID PRN for CONSTIPATION-1ST LINE Prescribed by: DINO HURT on 02/09/21 0730 Hydrocodone Bit/Acetaminophen (HYDROcodone/APAP 5 MG/325 MG TAB) 1 Tab Tab, 1-2 EA PO Q6HR PRN for PAIN-MODERATE (5-7) Prescribed by: DINO HURT on 02/09/21 0731 Ibuprofen (Ibu) 600 Mg Tablet, 600 MG PO Q6HR Prescribed by: DINO HURT on 02/09/21 0730 OB - History Hx of Present Care: Yes (single OB visit in August) Obstetrical Complications: None Medical Complications: None Information Induced Hypertension: No Maternal Gestational Diabetes: No Hemorrhage: No Obstetrical History Hx : 3 Hx Para: 2 Hx # Term Pregnancies: 2 Number of Living Children: 2 Hx Termination: No Hx Multiple Gestation: No Hx Ectopic : No Hx Stillbirth: No Hx Complication: No Hx Induced Hypertens: No Hx Maternal Gestational Diabet: No Hx Hemorrhage: No Delivery History Hx Section: Yes Adverse Rxn to Tranfusion: No Patient Past Medical History n/a Social History/Family History Alcohol Use: Denies Use Recreational Drug Use: No Smoking Cessation: Never smoker Immunizations Tetanus Booster (TDap): Unknown OB - Admission Exam Physical Exam Vitals: see nurses notes HEENT: NCAT Lungs: Clear Abdomen: Gravid (tender on exam diffusely. no evidence of trauma. bedside sono shows absence of heart movement or color doppler flow) Extremities: Normal Cervical Dilatation: None Labs Laboratory Tests Test 12/17/21 02:59 Range/Units White Blood Count 9.4 4.3-11.0 10^3/uL Red Blood Count 2.42 L 3.80-5.11 10^6/uL Hemoglobin 6.3 *L 11.5-16.0 g/dL Hematocrit 20 *L 35-52 % Mean Corpuscular Volume 81 80-99 fL Mean Corpuscular Hemoglobin 26 25-34 pg Mean Corpuscular Hemoglobin Concent 32 32-36 g/dL Red Cell Distribution Width 14.2 10.0-14.5 % Platelet Count 114 L 130-400 10^3/uL Mean Platelet Volume 9.9 9.0-12.2 fL Immature Granulocyte % (Auto) 0 % Neutrophils (%) (Auto) 64 42-75 % Lymphocytes (%) (Auto) 27 12-44 % Monocytes (%) (Auto) 7 0-12 % Eosinophils (%) (Auto) 1 0-10 % Basophils (%) (Auto) 0 0-10 % Neutrophils # (Auto) 6.0 1.8-7.8 10^3/uL Lymphocytes # (Auto) 2.6 1.0-4.0 10^3/uL Monocytes # (Auto) 0.6 0.0-1.0 10^3/uL Eosinophils # (Auto) 0.1 0.0-0.3 10^3/uL Basophils # (Auto) 0.0 0.0-0.1 10^3/uL Immature Granulocyte # (Auto) 0.0 0.0-0.1 10^3/uL Sodium Level 138 135-145 MMOL/L Potassium Level 3.9 3.6-5.0 MMOL/L Chloride Level 111 H 98-107 MMOL/L Carbon Dioxide Level 16 L 21-32 MMOL/L Anion Gap 11 5-14 MMOL/L Blood Urea Nitrogen 8 7-18 MG/DL Creatinine 0.68 0.60-1.30 MG/DL Estimat Glomerular Filtration Rate 126 BUN/Creatinine Ratio 12 Glucose Level 99 70-105 MG/DL Calcium Level 7.0 L 8.5-10.1 MG/DL Corrected Calcium 8.1 L 8.5-10.1 MG/DL Total Bilirubin 0.3 0.1-1.0 MG/DL Aspartate Amino Transf (AST/SGOT) 15 5-34 U/L Alanine Aminotransferase (ALT/SGPT) 13 0-55 U/L Alkaline Phosphatase 165 H 40-136 U/L Total Protein 4.9 L 6.4-8.2 GM/DL Albumin 2.6 L 3.2-4.5 GM/DL OB - Assessment/Plan/Diagnosis Assessment Assessment: other (placental abrupation vs uterine rupture) Admission Dx IUFD, third trimester bleedng Admission Status: Inpatient Order (span 2 midnights) Reason for Inpatient Admission: Plan Plan: Section (Discussed with the patient findings on sono and need to perform emergent section. Consent obtained for surgery as well as transfusion of blood products as needed. Counseled the patient on absence of heart rate) SHELDON BUTLER MD Dec 17, 2021 04:43
[2021-12-17] MEDS ORDERED: NALOXONE 0.4 MG/ML 1 ML (NARCAN) VIAL IV PRN (04:45)
[2021-12-17] MEDS ORDERED: NOREPINEPHRINE 8 MG/250 ML 250 ML IV ONE (04:51)
[2021-12-17 05:09] LABS: HEMATOCRIT 28 % (35-52); HEMOGLOBIN 8.5 g/dL (11.5-16.0); MEAN CORPUSCULAR HEMOGLOBIN 29 pg (25-34); MEAN CORPUSCULAR HGB CONC 31 g/dL (32-36); MEAN CORPUSCULAR VOLUME 93 fL (80-99); MEAN PLATELET VOLUME 9.7 fL (9.0-12.2); PLATELET COUNT 118 10^3/uL (130-400)
[2021-12-17 05:11] LABS: ALBUMIN 2.5 GM/DL (3.2-4.5); POTASSIUM 4.5 MMOL/L (3.6-5.0)
[2021-12-17 05:12] LABS: CALCIUM 6.5 MG/DL (8.5-10.1)
--- NOTE | 2021-12-17 05:12 | OB/GYN Operative Report ---
Operative Report Date of Procedure:Dec 17, 2021 Preoperative Diagnosis: 20-year-old 3 para 2 at 38 weeks gestation with third trimester bleeding and IUFD differential of placental abruption versus uterine rupture Postoperative Diagnosis: [Placental abruption with IUFD] Name of the Procedure: [Repeat low transverse section] Surgeon: Sheldon Butler Marketing Information Analyst(s): [none] Anesthesia: [General] Indications for Procedure: [As above] Findings of the Procedure: [Fetus in the vertex position with bloody fluid placenta delivered almost immediately following the baby evacuated approximately 2000 and mL of blood clots from the uterus] Name and Description of the Procedure: Patient presented by EMS with hemorrhage and abdominal pain. We were awaiting arrival and upon immediate evaluation found the patient to have hypotension dried blood over her lower legs and abdomen cervix closed and exquisite abdominal tenderness throughout. Bedside sono showed absence of heart rate. Patient was consented for emergent section and counseled very low likelihood of ability to resuscitate the baby. Consent for surgery and transfusion of blood proctopexy was obtained in route to the OR. The OR crew and anesthesia had been summoned prior to the patient's arrival and were in the OR. Burns catheter was placed while anesthesia was preparing medications. SCDs were placed and abdomen was prepped and draped. Once general anesthesia was obtained a low transverse abdominal incision was made over previous scars and carried through to the underlying layer of the fascia which was incised bilaterally. This incision was extended laterally with blunt dissection. The fascia was dissected off the rectus muscles in a similar fashion peritoneum entered bluntly and rectus muscles were with blunt dissection. Bladder blade was placed and a low transverse incision was made. Blood clots came out upon hysterotomy. The was delivered atraumatically with no tone no respiratory effort and no pink color. Cord was clamped and cut and handed to the waiting nurse for attempted resuscitation efforts. Placenta delivered almost immediately following the baby and approximately 2000 mL of blood clots were evacuated from the uterus. The uterus was exteriorized and cleared of all clots and debris. The uterine incision was closed with a running locked 0 Monocryl stitch. The gutters were cleared of all clots and debris a large blood clot was identified in the left cul-de-sac and extensive evaluation of the uterus did not reveal any evidence of uterine rupture. Atony was encountered as anticipated and had Pitocin running immediately following delivery of the baby. Methergine was administered and following closure of the uterus 1000 mcg of Cytotec was placed per rectum. A B dale stitch was placed with an 0 chromic suture. Uterus was returned to the abdomen and again hemostasis was appreciated the incision. No evidence of bladder damage was identified and Interceed was placed over the uterus. The peritoneum had been torn during entrance into the abdominal cavity. It was reapproximated best ability with a 2-0 Vicryl suture. The rectus layer had no vascular bleeding but was oozing throughout. At this point she had a second unit of packed red blood cells hanging and FFP and cryo were being thawed while blood lab report ports pending. The fascia was closed in a running 0 Vicryl stitch running lateral to the midline and crossing in the midline. The subcutaneous layer was irrigated and again no vascular bleeding but oozing noted throughout. The skin was closed with subcuticular 4-0 Monocryl suture. Anesthesia and the nursing team were made aware of concern for DIC and urgency of FFP and cryo reiterated. Dermabond dressing was placed over the incision and FFP arrived to begin transfusion. Uterine massage showed bleeding through the vagina without blood clots but in an anticipated amount. Cervical exam revealed a closed cervix and with the significant decrease in bleeding and B dale and medications with FFP hanging, placement of Bakri he was held. Abdominal x-ray was done prior to skin closure confirming no retained instruments or laps as a full count was not able to be performed prior to surgery. Lap and needle instruments count was correct x2. Complications: None Disposition: critical SHELDON BUTLER MD Dec 17, 2021 05:12
[2021-12-17 05:13] LABS: TOTAL PROTEIN 4.8 GM/DL (6.4-8.2)
[2021-12-17 05:15] LABS: BILIRUBIN,TOTAL 0.5 MG/DL (0.1-1.0)
[2021-12-17 05:17] LABS: CREATININE SERUM 0.68 MG/DL (0.60-1.30)
[2021-12-17 05:33] LABS: INR 1.5 (0.8-1.4); PROTHROMBIN TIME PATIENT 18.5 SEC (12.2-14.7)
[2021-12-17] MEDS: ACETAMINOPHEN 500 MG TAB (TYLENOL) PO SCH ×3 (05:56→16:36)
--- NOTE | 2021-12-17 06:49 | Diagnostic Imaging Report ---
INDICATION: Postop, emergency . FINDINGS: Supine single KUB shows no retained opaque foreign body. IMPRESSION: No suspicious retained opaque foreign body. Dictated by: Dictated on workstation # [id number]
[2021-12-17] MEDS ORDERED: NS IV 1000 ML 1,000 ML ONE (08:21)
--- NOTE | 2021-12-17 08:27 | Tele-ICU Consult ---
History of Present Illness History of Present Illness Date Seen by Provider: Dec 17, 2021 Time Seen by Provider: 08:26 Date of Admission (Tele-ICU Physician , consultation) Available chart/ vitals / labs / Images reviewed H&P is from ER notes Patient's information available about PMH, Shx, Fhx allergy reviewed in EMR. ROS as per chart and RN report Now in ICU Video assessment done using teleICU camera, rest of exam as per RN Discussed with RN. Consultants: mold presser Hospital course: 12/17: 21 y/o female s/p emergent repeat C-sec ( 3/para 2) for IUFD(intrauterine demise)/3rd trimester bleeding. A/P s/p emergent repeat C-sec 3rd trimester bleeding - as per ob/hyn - pain control Hemorrhagic shock, ABLA with possible DIC - evacuated approximately 2000 and mL of blood clots from the uterus - s/p transfusion 2 u pRBC and FFP 2 u - folow Hb and fibrinogen -levo - to wean - cont hydration - ABX started Met acidosios on am labs - repeat , follow renal function Lines : per(Central Line Necessity Reviewed) Burns: + OG: Nutrition: Analgesia: Anxiety/ delirium VTE Prophylaxis: scd Stress Ulcer Prophylaxis: na Plans in collaboration with bedside consultants and [employer] DISPLAY SPECIALIST MDs. Discussed with RN to reach out if any questions or concerns A total of 31 minutes of critical care time was devoted to this patient today, required to treat and/or prevent further deterioration of critical care condition ( as above ) . Allergies and Home Medications Allergies Coded Allergies: No Known Drug Allergies (Unverified , 09/09/19) Home Medications Docusate Sodium 100 Mg Capsule, 100 MG PO BID PRN for CONSTIPATION-1ST LINE Prescribed by: DINO HURT on 02/09/21 0730 Hydrocodone Bit/Acetaminophen 1 Tab Tab, 1-2 EA PO Q6HR PRN for PAIN-MODERATE (5-7) Prescribed by: DINO HURT on 02/09/21 0731 Ibuprofen 600 Mg Tablet, 600 MG PO Q6HR Prescribed by: DINO HURT on 02/09/21 0730 Past Medical/Social/Family Hx Patient Social History Tobacco Use?: No Substance use?: No Alcohol Use?: No Pt stated abuse/neglect: No Immunizations Up To Date Tetanus Booster (TDap): Unknown Current Status Advance Directives: Unable to obtain Communicates: Verbally Primary Language: Prydein[place] Preferred Spoken Language: P[place]in[place] Past Medical History n/a Review of Systems Constitutional: see HPI Focused Exam Height, Weight, BMI Height: '" Weight: lbs. oz. kg; 31.12 BMI Method: Exam Exam Patient acknowledged, consented, and participated in this virtual visit which was conducted using real time audio/video Vital Signs Date Time Temp Pulse Resp B/P (MAP) Pulse Ox O2 Delivery O2 Flow Rate FiO2 12/17/21 06:50 36.6 100 Room Air 12/17/21 06:15 35.8 62 25 101/63 100 Room Air 12/17/21 06:10 57 70/50 12/17/21 06:00 84 23 70/50 100 Room Air 12/17/21 05:30 73 24 81/49 98 Room Air 12/17/21 05:15 70 27 92/54 97 Room Air 12/17/21 05:15 76 12/17/21 05:10 36.2 12/17/21 05:10 Room Air 12/17/21 05:09 36.2 76 28 89/53 97 Room Air 12/17/21 05:07 36.2 20 89/53 (65) 97 Room Air 12/17/21 05:05 35.7 67 25 92/53 98 Room Air 12/17/21 05:00 64 31 95/58 100 Room Air 12/17/21 05:00 36.2 12/17/21 04:57 35.7 18 112/77 (89) 100 OxyMask 10 12/17/21 04:47 13 61/52 (55) 99 OxyMask 10 12/17/21 04:45 68 30 112/77 100 Room Air 12/17/21 04:45 OxyMask 10 12/17/21 04:45 36.0 12/17/21 04:37 36.1 24 91/62 (72) 100 OxyMask 10 12/17/21 04:30 35.2 12/17/21 04:30 62 25 61/52 100 Room Air 12/17/21 04:27 35.9 16 102/94 (97) 100 OxyMask 10 12/17/21 04:20 OxyMask 10.00 12/17/21 04:18 35.0 16 96/82 (87) 98 OxyMask 10 12/17/21 04:18 OxyMask 10 12/17/21 04:15 35.0 102/94 I & O 12/17/21 07:00 Intake Total 2115 ml Output Total 450 ml Balance 1665 ml Height & Weight Height: '" Weight: lbs. oz. kg; 31.12 BMI Method: General Appearance: No Apparent Distress, Mild Distress Results Lab Laboratory Tests 12/17/21 02:59 12/17/21 04:53 Assessment/Plan Assessment/Plan ` GORDON MARTINEZ MD Dec 17, 2021 08:27
[2021-12-17 08:53] LABS: MONOCYTES % (AUTO) 7 % (0-12)
[2021-12-17 08:54] LABS: BASOPHILS % (AUTO) 0 % (0-10); EOSINOPHILS % (AUTO) 0 % (0-10); LYMPHOCYTES # (AUTO) 1.9 10^3/uL (1.0-4.0); LYMPHOCYTES % (AUTO) 10 % (12-44); MEAN CORPUSCULAR HEMOGLOBIN 28 pg (25-34); MEAN CORPUSCULAR HGB CONC 33 g/dL (32-36); MEAN CORPUSCULAR VOLUME 86 fL (80-99); MEAN PLATELET VOLUME 9.7 fL (9.0-12.2); MONOCYTES # (AUTO) 1.3 10^3/uL (0.0-1.0); NEUTROPHILS # (AUTO) 15.4 10^3/uL (1.8-7.8); NEUTROPHILS % (AUTO) 82 % (42-75); PLATELET COUNT 133 10^3/uL (130-400); WHITE BLOOD COUNT 18.8 10^3/uL (4.3-11.0)
[2021-12-17 08:57] LABS: HEMATOCRIT 18 % (35-52); HEMOGLOBIN 5.9 g/dL (11.5-16.0)
[2021-12-17 09:05] LABS: INR 1.2 (0.8-1.4); PROTHROMBIN TIME PATIENT 15.3 SEC (12.2-14.7)
[2021-12-17 09:07] LABS: CALCIUM 6.4 MG/DL (8.5-10.1); CREATININE SERUM 0.57 MG/DL (0.60-1.30); POTASSIUM 4.3 MMOL/L (3.6-5.0)
[2021-12-17] MEDS ORDERED: NS IV 500 ML 500 ML ONE (09:09)
--- NOTE | 2021-12-17 09:31 | Progress Note ---
Standard Progress Note Progress Notes/Assess & Plan Time Seen by a Provider: 09:26 Progress/Assessment & Plan Subjective: Patient continues to complain of pain although is moderately well co ntrolled. Slight dizziness. Denies chest pain or shortness of air. No nausea or vomiting. Objective: Blood pressures are stable, 100% O2, pulse 90s. Afebrile General -alert and oriented in no acute distress Abdomen-soft nondistended, appropriately tender to palpation, fundus firm below the level of the umbilicus Incision-dressing is in place no active bleeding. Clots at incision unchanged Extremities-nontender, edema 1+, SCDs in place Labs being drawn during rounding Assessment: G3, P3 status post repeat low transverse section with placental abruption postop day 0 with IUFD and DIC Plan: #1. Greatly appreciate insurance consultant management while in ICU #2. Labs pending but anticipate need for additional packed red blood cells. Patient is status posttransfusion of 3 units packed red blood cells, 2 units of FFP and 2 units of cryo #3. Continue to offer grievance program with as patient is able #4. We will continue to follow with patient until this evening and plan to check out to on-call OB Focused Exam Lactate Level 12/17/21 08:38: Lactic Acid Level 1.57 Lactic Acid Level Laboratory Tests Test 12/17/21 08:38 Lactic Acid Level 1.57 MMOL/L (0.50-2.00) SHELDON BUTLER MD Dec 17, 2021 09:31
[2021-12-17 09:32] LABS: ANISOCYTOSIS SLIGHT; BAND NEUTROPHILS 4 %; BASOPHILS % (MANUAL) 0 %; ELLIPT/OVALOCYTES SLIGHT; EOSINOPHILS % (MANUAL) 0 %; LYMPHOCYTES % (MANUAL) 8 %; MONOCYTES % (MANUAL) 6 %; NEUTROPHILS % (MANUAL) 82 %; POIKILOCYTOSIS SLIGHT; POLYCHROMASIA SLIGHT
[2021-12-17] MEDS: OXYTOCIN PRE-MIX DRIP 500 ML IV SCH ×2 (09:44→15:39)
[2021-12-17] MEDS: DOCUSATE SODIUM 100 MG (COLACE) CAP PO SCH ×2 (09:44→20:49)
[2021-12-17] MEDS: NS IV 1000 ML 1,000 ML IV SCH ×2 (11:55→19:07)
[2021-12-17] MEDS: ceFAZolin INJECTION 1,000 MG in NS (IVPB) 50 ML IV SCH ×2 (13:48→23:04)
[2021-12-17] MEDS: CATHETER FLUSH 10 ML SYR IV SCH ×2 (13:49→22:00)
--- NOTE | 2021-12-17 14:33 | Anesthesia-General Post-Op ---
General Patient Condition Mental Status/LOC: Same as Preop Cardiovascular: Satisfactory Nausea/Vomiting: Absent Respiratory: Satisfactory Pain: Controlled Complications: Absent Post Op Complications Complications None Follow Up Care/Instructions Patient Instructions None needed. Anesthesia/Patient Condition Patient Condition RN reported pt is doing well, off pressors, received 2 more units PRBC's and is on room air without complaints. [place] [facility] [place]: No JONATHAN TOLBERT CCO Dec 17, 2021 14:33
--- NOTE | 2021-12-17 16:41 | Newborn Delivery Attendance ---
NB Delivery Attendance Delivery Attendance Requested by Senior Account Executive: Dr. Holt Maternal Reason for Attendance Reason: Antepartum hemorrhage Condition/Assessment of Infant Gender: Female Last Name: Rohit Gestational Age in Days: 0 Gestational Age in Weeks: 38 1 minute : 0 5 minute : 0 10 minute : 0 Resuscitation Resuscitation: Dried, Mask+pressure ventilation Intubation with PPV: Yes Disposition Disposition/Impression I was called by nursery staff to attend delivery at the request of Dr. Holt due to maternal hemorrhage, placental abruption. According to nursing staff, Jackeline had developed abdominal pain and vaginal bleeding, and stopped feeling the baby move. This was at least an hour prior to arrival at the hospital. Upon arrival to the hospital, Ob staff was unable to detect any heart tones. Jackeline was taken to the OR for a STAT under general anesthesia. The infant was reportedly limp and blue with no audible heartbeat and no pulse immediately after delivery. Intensive resuscitation measures were initiated, i ncluding PPV with mask and T-piece resuscitator. At the time that I arrived in the OR resuscitation area, one of the respiratory therapists had just finished successfully intubating the infant, and one of the nurses was performing chest compressions while the second RT worked on securing the ETT. Infant had not been hooked up to cardiorespiratory or pulse-ox monitors yet. I took over chest compressions so that RN could get infant hooked up to monitors. Once the second RT had finished securing the ETT, I had her take over chest compressions so that the RN could give me verbal report. I was advised that baby had absence of heartbeat for at least 10 minutes with no response to resuscitation measures. On the monitor, there was good wave-form correlating with chest compressions, but no activity when chest compressions were paused after 2 minutes for pulse-check. A dose of epinephrine was administered via ETT, and there was no audible heart beat and no organized cardiac electrical activity on the monitor. The plan was to repeat one more round of 2 minutes of chest compressions with coordinated PPV and cease resuscitation if there was still no detectable heartbeat at the next heartbeat check. However, during the next heartbeat check, the RN thought she might have heard a heartbeat, but was very unsure about it. I then auscultated and was unable to hear a heartbeat, but just in case, we re-started chest compressions and administered a second dose of epinephrine via ETT. I was unable to auscultate any heart rate or palpate any pulses during pause in chest compressions with the next pause in compressions. A final round of chest compressions and ventilation was administered for 2 more minutes, and I was still unable to auscultate a heartbeat or palpate any pulses after that, so I ordered cessation of resuscitation measures at that point. I did not place a UVC during the resuscitation attempts as I did not have an opportunity to do so until after it had become clear that chances of meaningful survival were very low (my attention was needed on performing chest compressions while both RT's were occupied with providing PPV and securing the ETT, and nursing staff were occupied attaching monitors and drawing up emergency medications). The time reading on the infant warmer read 03:22 at the time that resuscitation efforts were halted, although I'm not sure how well that time correlated with other clocks - please see nursing documentation for more specific times. As the never had any detectable heartbeat, movement, or spontaneous respiration, and did not have detectable heart-tones at any point prior to delivery, she was considered to be a stillbirth. She was extubated and wiped clean, and nursing staff obtained measurements and footprints while I went to speak with Jackeline's and mother in the waiting area. The was placed in the cuddle-cot for cooling, and family members were taken to a room, where they were able to call additional family members for emotional support. The was the n brought to Jackeline's and mother by nursing staff for grieving purposes. Jackeline was still under general anesthesia at this time, undergoing surgical closure and receiving blood products, FFP, cryoprecipitate, etc. She was then taken to the ICU for further care. Dr. Holt reported that there were very large blood clots in the uterus, and blood loss was estimated at 2.5 liters. YARI CRUZ MD Dec 17, 2021 16:41
[2021-12-17 16:43] LABS: BASOPHILS % (AUTO) 0 % (0-10); EOSINOPHILS % (AUTO) 0 % (0-10); HEMATOCRIT 25 % (35-52); LYMPHOCYTES # (AUTO) 2.1 10^3/uL (1.0-4.0); LYMPHOCYTES % (AUTO) 12 % (12-44); MEAN CORPUSCULAR HEMOGLOBIN 28 pg (25-34); MEAN CORPUSCULAR VOLUME 86 fL (80-99)
[2021-12-17 16:46] LABS: MEAN CORPUSCULAR HGB CONC 32 g/dL (32-36); MEAN PLATELET VOLUME 10.9 fL (9.0-12.2); MONOCYTES # (AUTO) 1.4 10^3/uL (0.0-1.0); MONOCYTES % (AUTO) 8 % (0-12); NEUTROPHILS # (AUTO) 14.4 10^3/uL (1.8-7.8); NEUTROPHILS % (AUTO) 80 % (42-75); PLATELET COUNT 110 10^3/uL (130-400)
[2021-12-17 16:51] LABS: ALBUMIN 2.2 GM/DL (3.2-4.5); POTASSIUM 4.2 MMOL/L (3.6-5.0)
[2021-12-17 16:53] LABS: CALCIUM 6.4 MG/DL (8.5-10.1)
[2021-12-17 16:54] LABS: TOTAL PROTEIN 4.1 GM/DL (6.4-8.2)
[2021-12-17 16:55] LABS: PROTHROMBIN TIME PATIENT 13.7 SEC (12.2-14.7)
[2021-12-17 16:56] LABS: BILIRUBIN,TOTAL 1.4 MG/DL (0.1-1.0)
[2021-12-17 16:57] LABS: CREATININE SERUM 0.55 MG/DL (0.60-1.30)
[2021-12-17] MEDS ORDERED: EPINEPHrine 0.1 MG/ML 10 ML (HOSPIRA) SYR IJ ONE (18:53)
[2021-12-18] MEDS: IBUPROFEN 600 MG (MOTRIN) TAB PO SCH ×4 (01:04→19:50)
[2021-12-18] MEDS: ACETAMINOPHEN 500 MG TAB (TYLENOL) PO SCH ×3 (01:04→17:16)
[2021-12-18] MEDS: NS IV 1000 ML 1,000 ML IV SCH ×2 (02:18→09:11)
[2021-12-18 04:00] VITALS: BP 101/59
[2021-12-18 05:42] LABS: POTASSIUM 3.8 MMOL/L (3.6-5.0)
[2021-12-18 05:43] LABS: CALCIUM 6.4 MG/DL (8.5-10.1)
[2021-12-18 05:44] LABS: TOTAL PROTEIN 4.2 GM/DL (6.4-8.2)
[2021-12-18 05:46] LABS: BILIRUBIN,TOTAL 0.6 MG/DL (0.1-1.0)
[2021-12-18 05:47] LABS: PHOSPHORUS 2.3 MG/DL (2.3-4.7)
[2021-12-18 05:48] LABS: CREATININE SERUM 0.53 MG/DL (0.60-1.30)
[2021-12-18 05:50] LABS: MAGNESIUM 1.4 MG/DL (1.6-2.4)
[2021-12-18 05:57] LABS: BASOPHILS % (AUTO) 0 % (0-10); EOSINOPHILS % (AUTO) 0 % (0-10); LYMPHOCYTES # (AUTO) 2.3 10^3/uL (1.0-4.0); LYMPHOCYTES % (AUTO) 15 % (12-44); MEAN CORPUSCULAR HEMOGLOBIN 29 pg (25-34); MEAN CORPUSCULAR HGB CONC 34 g/dL (32-36); MEAN CORPUSCULAR VOLUME 85 fL (80-99); MEAN PLATELET VOLUME 10.4 fL (9.0-12.2); MONOCYTES # (AUTO) 1.4 10^3/uL (0.0-1.0); MONOCYTES % (AUTO) 9 % (0-12); NEUTROPHILS # (AUTO) 11.4 10^3/uL (1.8-7.8); NEUTROPHILS % (AUTO) 75 % (42-75); PLATELET COUNT 115 10^3/uL (130-400); WHITE BLOOD COUNT 15.2 10^3/uL (4.3-11.0)
[2021-12-18 06:01] LABS: HEMOGLOBIN 6.6 g/dL (11.5-16.0)
[2021-12-18 06:02] LABS: HEMATOCRIT 19 % (35-52)
--- NOTE | 2021-12-18 07:25 | Postpartum Progress Note ---
Note Note Day # 1 Subjective: Patient was delivered via crash by Dr. Holt yesterday morning. She had massive transfusion protocol initiated and received 5 uPRBC, 2cryo,2plts. She initially was on pressor drip and in ICU, was transferred back to L and D last evening after weaning off pressors, and on room air. This am she continues to be appropriately upset about loss of . Pain is well controlled. She has not yet ambulated. Objective: Physical Exam: General - Alert and oriented, no apparent distress Abdomen - Soft, appropriately tender to palpation, non-distended, fundus firm at umbilicus Extremities - no edema, negative Deangelo's bilaterally Incision- slightly moist, but clean and intact Assessment: POD 1 Stat Placental abruption DIC- improved/resolved Acute blood loss anemia s/p 5 uPRBC, 2 cryo, 2 plts due to abruption Plan: Continue fulton for now, awaiting good UOP response Repeat labs at noon Encourage ambulation w/ assistance Ferrous sulfate supplementation. Vitals - Labs Vital Signs - I&O Vital Signs Date Time Temp Pulse Resp B/P (MAP) Pulse Ox O2 Delivery O2 Flow Rate FiO2 12/18/21 04:00 36.7 102 20 101/59 (73) 98 Room Air 12/17/21 23:04 36.4 99 20 105/65 (78) 99 Room Air 12/17/21 20:30 Room Air 12/17/21 20:30 36.6 92 22 127/74 (91) 100 Room Air 12/17/21 19:45 36.6 111 22 131/84 100 Room Air 12/17/21 19:00 93 12/17/21 19:00 93 22 133/82 100 Room Air 12/17/21 18:00 87 22 132/83 100 Room Air 12/17/21 17:00 96 27 122/84 100 Nasal Cannula 2.00 12/17/21 16:00 Room Air 12/17/21 16:00 96 31 124/81 100 Nasal Cannula 2.00 12/17/21 15:00 96 26 123/84 100 Nasal Cannula 2.00 12/17/21 14:19 36.1 98 26 119/91 100 Room Air 12/17/21 14:00 104 13 117/78 100 Nasal Cannula 2.00 12/17/21 13:00 89 39 134/93 100 Nasal Cannula 2.00 12/17/21 13:00 91 12/17/21 12:09 36.5 87 29 125/89 100 Room Air 12/17/21 12:01 Room Air 12/17/21 12:00 87 31 112/83 100 Nasal Cannula 2.00 12/17/21 11:53 36.6 87 29 127/91 Room Air 12/17/21 11:33 36.6 81 30 129/99 Room Air 12/17/21 11:00 84 127/91 100 Nasal Cannula 2.00 12/17/21 10:00 92 31 91/62 100 Nasal Cannula 2.00 12/17/21 09:48 36.5 75 26 96/55 100 OxyMask 2.00 12/17/21 09:37 36.6 94 26 97/70 100 OxyMask 2.00 12/17/21 09:00 83 13 103/72 100 Nasal Cannula 2.00 12/17/21 08:27 100 OxyMask 2.00 12/17/21 08:00 81 38 97/63 100 Room Air I & O 12/18/21 07:00 Intake Total 35809 ml Output Total 1095 ml Balance 45379 ml Labs Laboratory Tests 12/17/21 08:38: White Blood Count 18.8H, Red Blood Count 2.08L, Hemoglobin 5.9#*L, Hematocrit 18*L, Mean Corpuscular Volume 86, Mean Corpuscular Hemoglobin 28, Mean Corpuscular Hemoglobin Concent 33, Red Cell Distribution Width 15.2H, Platelet Count 133, Mean Platelet Volume 9.7, Immature Granulocyte % (Auto) 1, Neutrophils (%) (Auto) 82H, Lymphocytes (%) (Auto) 10L, Monocytes (%) (Auto) 7, Eosinophils (%) (Auto) 0, Basophils (%) (Auto) 0, Neutrophils # (Auto) 15.4H, Lymphocytes # (Auto) 1.9, Monocytes # (Auto) 1.3H, Eosinophils # (Auto) 0.0, Basophils # (Auto) 0.0, Immature Granulocyte # (Auto) 0.1, Neutrophils % (Manual) 82, Lymphocytes % (Manual) 8, Monocytes % (Manual) 6, Eosinophils % (Manual) 0, Basophils % (Manual) 0, Band Neutrophils 4, Percent Immature Platelet Fraction 4.4, Polychromasia SLIGHT, Poikilocytosis SLIGHT, Anisocytosis SLIGHT, Elliptocytes SLIGHT, Prothrombin Time 15.3H, INR Comment 1.2, Fibrinogen 200L, Sodium Level 138, Potassium Level 4.3, Chloride Level 115H, Carbon Dioxide Level 14L, Anion Gap 9, Blood Urea Nitrogen 10, Creatinine 0.57L, Estimat Glomerular Filtration Rate 132, BUN/Creatinine Ratio 18, Glucose Level 115H, Lactic Acid Level 1.57, Calcium Level 6.4L 12/17/21 10:20: Influenza Type A (RT-PCR) Not Detected, Influenza Type B (RT-PCR) Not Detected, SARS-CoV-2 RNA (RT-PCR) Not Detected 12/17/21 16:25: White Blood Count 18.0H, Red Blood Count 2.87L, Hemoglobin 8.0#L, Hematocrit 25L , Mean Corpuscular Volume 86, Mean Corpuscular Hemoglobin 28, Mean Corpuscular Hemoglobin Concent 32, Red Cell Distribution Width 14.8H, Platelet Count 110L, Mean Platelet Volume 10.9, Immature Granulocyte % (Auto) 1, Neutrophils (%) (Auto) 80H, Lymphocytes (%) (Auto) 12, Monocytes (%) (Auto) 8, Eosinophils (%) (Auto) 0, Basophils (%) (Auto) 0, Neutrophils # (Auto) 14.4H, Lymphocytes # (Auto) 2.1, Monocytes # (Auto) 1.4H, Eosinophils # (Auto) 0.0, Basophils # (Auto) 0.0, Immature Granulocyte # (Auto) 0.1, Percent Immature Platelet Fraction 6.2, Prothrombin Time 13.7, INR Comment 1.0, Fibrinogen 270, Sodium Level 137, Potassium Level 4.2, Chloride Level 115H, Carbon Dioxide Level 16L, Anion Gap 6, Blood Urea Nitrogen 9, Creatinine 0.55L, Estimat Glomerular Filtration Rate 133, BUN/Creatinine Ratio 16, Glucose Level 89, Calcium Level 6.4L, Corrected Calcium 7.8L, Total Bilirubin 1.4H, Aspartate Amino Transf (AST/SGOT) 32, Alanine Aminotransferase (ALT/SGPT) 17, Alkaline Phosphatase 86, Total Protein 4.1L, Albumin 2.2L 12/18/21 05:20: Sodium Level 135, Potassium Level 3.8, Chloride Level 113H, Carbon Dioxide Level 13L, Anion Gap 9, Blood Urea Nitrogen 7, Creatinine 0.53L, Estimat Glomerular Filtration Rate 134, BUN/Creatinine Ratio 13, Glucose Level 81, Calcium Level 6.4L, Corrected Calcium 8.0L, Total Bilirubin 0.6, Aspartate Amino Transf (AST/SGOT) 31, Alanine Aminotransferase (ALT/SGPT) 16, Alkaline Phosphatase 78, Total Protein 4.2L, Albumin 2.0L, Phosphorus Level 2.3, Magnesium Level 1.4L 12/18/21 05:50: White Blood Count 15.2H, Red Blood Count 2.28L, Hemoglobin 6.6*L, Hematocrit 19*L, Mean Corpuscular Volume 85, Mean Corpuscular Hemoglobin 29, Mean Corpuscular Hemoglobin Concent 34, Red Cell Distribution Width 15.9H, Platelet Count 115L, Mean Platelet Volume 10.4, Immature Granulocyte % (Auto) 1, Neutrophils (%) (Auto) 75, Lymphocytes (%) (Auto) 15, Monocytes (%) (Auto) 9, Eosinophils (%) (Auto) 0, Basophils (%) (Auto) 0, Neutrophils # (Auto) 11.4H, Lymphocytes # (Auto) 2.3, Monocytes # (Auto) 1.4H, Eosinophils # (Auto) 0.0, Basophils # (Auto) 0.0, Immature Granulocyte # (Auto) 0.1 DINO HURT DO Dec 18, 2021 07:25
[2021-12-18] MEDS: DOCUSATE SODIUM 100 MG (COLACE) CAP PO SCH ×2 (09:03→19:50)
[2021-12-18 09:05] VITALS: BP 108/68
[2021-12-18 12:11] VITALS: BP 96/57
[2021-12-18 13:24] LABS: BASOPHILS % (AUTO) 0 % (0-10); EOSINOPHILS % (AUTO) 0 % (0-10); LYMPHOCYTES % (AUTO) 14 % (12-44); MEAN CORPUSCULAR HEMOGLOBIN 29 pg (25-34); MEAN CORPUSCULAR HGB CONC 34 g/dL (32-36); MEAN CORPUSCULAR VOLUME 85 fL (80-99); MEAN PLATELET VOLUME 10.8 fL (9.0-12.2); MONOCYTES # (AUTO) 1.3 10^3/uL (0.0-1.0); MONOCYTES % (AUTO) 9 % (0-12); NEUTROPHILS # (AUTO) 11.1 10^3/uL (1.8-7.8); NEUTROPHILS % (AUTO) 76 % (42-75); PLATELET COUNT 130 10^3/uL (130-400); WHITE BLOOD COUNT 14.5 10^3/uL (4.3-11.0)
[2021-12-18 13:27] LABS: HEMOGLOBIN 6.4 g/dL (11.5-16.0)
[2021-12-18 13:28] LABS: HEMATOCRIT 19 % (35-52)
[2021-12-18 13:36] LABS: ALBUMIN 2.1 GM/DL (3.2-4.5); POTASSIUM 3.4 MMOL/L (3.6-5.0)
[2021-12-18 13:37] LABS: CALCIUM 6.8 MG/DL (8.5-10.1)
[2021-12-18 13:38] LABS: TOTAL PROTEIN 4.3 GM/DL (6.4-8.2)
[2021-12-18 13:40] LABS: BILIRUBIN,TOTAL 0.5 MG/DL (0.1-1.0)
[2021-12-18 13:42] LABS: CREATININE SERUM 0.53 MG/DL (0.60-1.30)
[2021-12-18 17:15] VITALS: BP 106/65
[2021-12-18] MEDS: FERROUS SULF 325 MG (IRON) TAB PO SCH (19:50)
[2021-12-18 21:05] VITALS: BP 99/67
[2021-12-19 01:08] VITALS: BP 116/74
[2021-12-19] MEDS: IBUPROFEN 600 MG (MOTRIN) TAB PO SCH ×2 (01:08→08:14)
[2021-12-19] MEDS: ACETAMINOPHEN 500 MG TAB (TYLENOL) PO SCH ×2 (01:09→08:15)
[2021-12-19 05:17] VITALS: BP 111/65
[2021-12-19 06:40] LABS: BASOPHILS % (AUTO) 0 % (0-10); EOSINOPHILS % (AUTO) 0 % (0-10); LYMPHOCYTES # (AUTO) 1.9 10^3/uL (1.0-4.0); LYMPHOCYTES % (AUTO) 17 % (12-44); MEAN CORPUSCULAR HEMOGLOBIN 29 pg (25-34); MEAN CORPUSCULAR HGB CONC 33 g/dL (32-36); MEAN CORPUSCULAR VOLUME 87 fL (80-99); MEAN PLATELET VOLUME 10.8 fL (9.0-12.2); MONOCYTES # (AUTO) 0.9 10^3/uL (0.0-1.0); MONOCYTES % (AUTO) 8 % (0-12); NEUTROPHILS # (AUTO) 8.2 10^3/uL (1.8-7.8); NEUTROPHILS % (AUTO) 74 % (42-75); PLATELET COUNT 160 10^3/uL (130-400); WHITE BLOOD COUNT 11.1 10^3/uL (4.3-11.0)
[2021-12-19 06:42] LABS: HEMATOCRIT 19 % (35-52); HEMOGLOBIN 6.2 g/dL (11.5-16.0)
[2021-12-19 06:52] LABS: ALBUMIN 2.3 GM/DL (3.2-4.5); POTASSIUM 3.3 MMOL/L (3.6-5.0)
[2021-12-19 06:53] LABS: CALCIUM 7.4 MG/DL (8.5-10.1)
[2021-12-19 06:55] LABS: TOTAL PROTEIN 4.9 GM/DL (6.4-8.2)
[2021-12-19 06:56] LABS: BILIRUBIN,TOTAL 0.5 MG/DL (0.1-1.0)
[2021-12-19 06:58] LABS: CREATININE SERUM 0.59 MG/DL (0.60-1.30); PHOSPHORUS 2.2 MG/DL (2.3-4.7)
[2021-12-19 07:01] LABS: MAGNESIUM 1.9 MG/DL (1.6-2.4)
[2021-12-19] MEDS: DOCUSATE SODIUM 100 MG (COLACE) CAP PO SCH (08:14)
[2021-12-19] MEDS: FERROUS SULF 325 MG (IRON) TAB PO SCH (08:14)
[2021-12-19 08:15] VITALS: BP 105/67
--- NOTE | 2021-12-19 09:18 | Postpartum Progress Note ---
Note Note Day # 1 Subjective: Patient was delivered via crash by Dr. Holt Th morning. She had massive transfusion protocol initiated and received 5 uPRBC, 2cryo,2plts. She initially was on pressor drip and in ICU, was transferred back to L and D last evening after weaning off pressors, and on room air. This am she continues to improve post op day 2. Pain is well controlled. She is now ambulating and voiding freely. Bleeding minimal. Objective: Physical Exam: General - Alert and oriented, no apparent distress Abdomen - Soft, appropriately tender to palpation, non-distended, fundus firm at umbilicus Extremities - no edema, negative Deangelo's bilaterally Incision- c/d/i Assessment: POD 2 Stat Placental abruption DIC- improved/resolved Acute blood loss anemia s/p 5 uPRBC, 2 cryo, 2 plts due to abruption Plan: Encourage ambulation w/ assistance Ferrous sulfate supplementation. Clinically stable for dismissal, will plan for dc later today if continues to progress and be asymptomatic with ambulation. Vitals - Labs Vital Signs - I&O Vital Signs Date Time Temp Pulse Resp B/P (MAP) Pulse Ox O2 Delivery O2 Flow Rate FiO2 12/19/21 08:15 36.5 99 18 105/67 (80) 98 Room Air 12/19/21 05:17 36.8 103 20 111/65 (80) 99 Room Air 12/19/21 01:08 36.9 108 18 116/74 (88) 97 Room Air 12/18/21 21:05 36.1 108 20 99/67 (78) 98 Room Air 12/18/21 17:15 37.0 104 18 106/65 (79) Room Air 12/18/21 12:11 37.0 104 18 96/57 (70) Room Air I & O 12/19/21 07:00 Intake Total 6800 ml Output Total 1950 ml Balance 4850 ml Labs Laboratory Tests 12/18/21 13:16: White Blood Count 14.5H, Red Blood Count 2.20L, Hemoglobin 6.4*L, Hematocrit 19*L, Mean Corpuscular Volume 85, Mean Corpuscular Hemoglobin 29, Mean Corpuscular Hemoglobin Concent 34, Red Cell Distribution Width 16.1H, Platelet Count 130, Mean Platelet Volume 10.8, Immature Granulocyte % (Auto) 1, Neutrophils (%) (Auto) 76H, Lymphocytes (%) (Auto) 14, Monocytes (%) (Auto) 9, Eosinophils (%) (Auto) 0, Basophils (%) (Auto) 0, Neutrophils # (Auto) 11.1H, Lymphocytes # (Auto) 2.0, Monocytes # (Auto) 1.3H, Eosinophils # (Auto) 0.0, Basophils # (Auto) 0.0, Immature Granulocyte # (Auto) 0.1, Sodium Level 137, Potassium Level 3.4L, Chloride Level 114H, Carbon Dioxide Level 19L, Anion Gap 4L, Blood Urea Nitrogen 6L, Creatinine 0.53L, Estimat Glomerular Filtration Rate 134, BUN/Creatinine Ratio 11, Glucose Level 83, Calcium Level 6.8L, Corrected Calcium 8.3L, Total Bilirubin 0.5, Aspartate Amino Transf (AST/SGOT) 28, Alanine Aminotransferase (ALT/SGPT) 18, Alkaline Phosphatase 77, Total Protein 4.3L, Albumin 2.1L 12/19/21 06:20: White Blood Count 11.1H, Red Blood Count 2.17L, Hemoglobin 6.2*L, Hematocrit 19*L, Mean Corpuscular Volume 87, Mean Corpuscular Hemoglobin 29, Mean Corpuscular Hemoglobin Concent 33, Red Cell Distribution Width 16.4H, Platelet Count 160, Mean Platelet Volume 10.8, Immature Granulocyte % (Auto) 1, Neutroph ils (%) (Auto) 74, Lymphocytes (%) (Auto) 17, Monocytes (%) (Auto) 8, Eosinophils (%) (Auto) 0, Basophils (%) (Auto) 0, Neutrophils # (Auto) 8.2H, Lymphocytes # (Auto) 1.9, Monocytes # (Auto) 0.9, Eosinophils # (Auto) 0.0, Basophils # (Auto) 0.0, Immature Granulocyte # (Auto) 0.1, Sodium Level 138, Potassium Level 3.3L, Chloride Level 112H, Carbon Dioxide Level 16L, Anion Gap 10, Blood Urea Nitrogen 7, Creatinine 0.59L, Estimat Glomerular Filtration Rate 131, BUN/Creatinine Ratio 12, Glucose Level 87, Calcium Level 7.4L, Corrected Calcium 8.8, Total Bilirubin 0.5, Aspartate Amino Transf (AST/SGOT) 22, Alanine Aminotransferase (ALT/SGPT) 16, Alkaline Phosphatase 82, Total Protein 4.9L, Albumin 2.3L, Phosphorus Level 2.2L, Magnesium Level 1.9 Microbiology 12/17/21 MRSA Screen - Final, Complete MRSA not isolated DINO HURT DO Dec 19, 2021 09:18
--- NOTE | 2021-12-19 09:20 | Discharge Inst-Women's Service ---
Discharge Inst-Women's Serv Depart Medication/Instructions New, Converted or Re-Newed RX: Transmitted to Pharmacy Final Diagnosis POD 2 RLTCS Placental abruption w/ loss Acute blood loss anemia Problems Reviewed?: Yes Consults/Follow Up Additional Follow Up: Yes Orders/Referrals Dr. Holt in 7-10 days and in 6 weeks Activity Activity: Activity as Tolerated Driving Instructions: No Driving for 1 Week NO SMOKING: NO SMOKING Nothing Inside Vagina: No Douching, No [place], No Tampons Diet Discharge Diet: No Restrictions Symptoms to Report to : Bleeding Excessive, Pain Increased, Fever Over 101 Degrees F, Vaginal Bleeding Increase, Questions/Concerns For Any Problems or Questions: Contact Your Physician Skin/Wound Care Infection Signs and Symptoms: Increased Redness, Foul Odor of Wound, Increased Drainage, Skin Itchy or Has a Rash, Increased Swelling, Temperature Above 101 F Operative Area Clean and Dry: Keep Incision Clean/Dry Stitches/Carol/Dermabond: Dermabond, Care of Stitches Bathing Instructions: DINO Be DO Dec 19, 2021 09:20
[2021-12-19] MEDS ORDERED: ACHD5005 PO ×2 (09:22→09:42)
[2021-12-19] MEDS ORDERED: POTA10CA43 PO (09:22)
[2021-12-19] MEDS ORDERED: IBUP-844 PO (09:22)
[2021-12-19] MEDS ORDERED: FERR325T24 PO (09:22)
[2021-12-19] MEDS ORDERED: DOCU100C37 PO (09:22)
== END 2021-12-19 12:55 | disposition home or self-care (01) | DRG 786 ==
LOC: WSo 02:38 → LDRP 02:41 → WSo 02:51 → ICU 02:51 → LDRP 04:26 → ICU 04:26 → LDRP 20:46 → WS 12-18 22:10
PROVIDERS: ADMIT Obstetrics & Gynecology; ATTEND Obstetrics & Gynecology
PROC: 10D00Z1 Extraction of Products of Conception, Low, Open Approach (ICD-10-PCS; principal; 2021-12-17 02:56)
DX: O36.4XX0 Maternal care for intrauterine death, not applicable or unspecified (principal); O45.93 Premature separation of placenta, unspecified, third trimester; R57.8 Other shock; D62 Acute posthemorrhagic anemia; E87.2 Acidosis; O34.211 Maternal care for low transverse scar from previous cesarean delivery; Z3A.37 37 weeks gestation of pregnancy; O90.81 Anemia of the puerperium; O72.3 Postpartum coagulation defects; Z37.1 Single stillbirth; Z20.822 Contact with and (suspected) exposure to COVID-19
CPT/HCPCS: 36415; 74018; 80048; 80053; 83605; 83735; 84100; 85007; 85025; 85027; 85384; 85610; 86850; 86900; 86901; 86920; 86927; 87081; 87636; 99212

== ENCOUNTER 2022-06-16 15:06 | Emergency (ER) | payer SELFPAY ==
[~2022-06-16 15:06] MED LIST changes: +DOCU100C37 PO; +FERR325T24 PO; +POTA10CA43 PO
--- NOTE | 2022-06-16 15:30 | ED GU-Female ---
General Chief Complaint: OB < 20 WEEKS Stated Complaint: MISCARRIAGE Nursing Triage Note: PT TO [facility] BY [facility] WITH C/O ABDNORMAL VAG BLEEDING AFTER STANDING UP FROM EATING LUNCH THIS AFTERNOON. PT STATES IT WAS DARK RED WITH CLOTS. PT HAD MISCARRIAGE IN NOVEMBER DUE TO PLACENTAL ABRUPTION History of Present Illness Date Seen by Provider: Jun 16, 2022 Time Seen by Provider: 15:20 Initial Comments 22-year-old female who is [id number], who has a PMH of recent miscarriage in November 2021 due to placental abruption, is brought in by EMS with c/o vaginal bleeding which began today afternoon with suprapubic and left pelvic cramping. Patient has not seen her BRIDGE SAW OPERATOR yet and is not sure if she is , but she notes that she has not had her period since the last 8 weeks. Denies nausea and vomiting, fever, dysuria, diarrhea, abdominal pain, chest pain, shortness of breath. Allergies and Home Medications Allergies Coded Allergies: No Known Drug Allergies (Unverified , 09/09/19) Patient Home Medication List Home Medication List Reviewed: Yes Docusate Sodium (Docusate Sodium) 100 Mg Capsule, 100 MG PO BID PRN for CONSTIPATION-1ST LINE Prescribed by: DINO HURT on 12/19/21921 Ferrous Sulfate (Ferosul) 325 Mg (65 Mg Iron) Tablet, 325 MG PO TIDWM Prescribed by: DINO HURT on 12/19/21921 Hydrocodone/Acetaminophen (Hydrocodone-Acetamin 5-325 mg) 5 Mg-325 Mg Tablet, 1- 2 TAB PO Q6H PRN for PAIN-MODERATE (5-7) Prescribed by: DINO HURT on 12/19/21941 Ibuprofen (Ibu) 600 Mg Tablet, 600 MG PO Q6HR Prescribed by: DINO HURT on 12/19/21921 Potassium Chloride (Potassium Chloride) 10 Meq Capsule.er, 10 MEQ PO DAILY Prescribed by: DINO HURT on 12/19/21921 Review of Systems Review of Systems Constitutional: no symptoms reported EENTM: no symptoms reported Respiratory: no symptoms reported Cardiovascular: no symptoms reported Gastrointestinal: no symptoms reported Genitourinary: pain, other : Yes Musculoskeletal: no symptoms reported Skin: no symptoms reported Psychiatric/Neurological: No Symptoms Reported Endocrine: No Symptoms Reported Hematologic/Lymphatic: No Symptoms Reported Past Rwbbzms-Anfgqj-Cagvup Hx Patient Social History Tobacco Use?: No Use of E-Cig and/or Vaping dev: No Substance use?: No Alcohol Use?: No Pt feels they are or have been: No Immunizations Up To Date Tetanus Booster (TDap): Unknown Influenza Vaccine Up-to-Date: No; Not Current Seasonal Allergies Seasonal Allergies: No Past Medical History Surgery/Hospitalization HX: none Surgeries: Yes Section Respiratory: No Currently Using CPAP: No Currently Using BIPAP: No Cardiac: No Neurological: No Last Menstrual Period: Apr 14, 2022 Sexually Transmitted Disease: No HIV/AIDS: No Genitourinary: No Gastrointestinal: No Musculoskeletal: No Endocrine: No HEENT: No Cancer: No Psychosocial: No Integumentary: No Blood Disorders: No Adverse Reaction/Blood Tranf: No Family Medical History Patient reports no known family medical history. Physical Exam Vital Signs Vital Signs - First Documented 06/16/22 15:06 Temp 37.3 Pulse 89 Resp 16 B/P (MAP) 110/71 (84) Capillary Refill : Height, Weight, BMI Height: '" Weight: lbs. oz. kg; 31.12 BMI Method: General Appearance: WD/WN, no apparent distress HEENT: PERRL/EOMI, normal ENT inspection Neck: full range of motion Cardiovascular: regular rate, rhythm Respiratory: lungs clear, normal breath sounds Gastrointestinal: normal bowel sounds, soft, tenderness (Suprapubic tenderness and left sided pelvic tenderness) Genital/Rectal: normal genital exam (Dried blood ), other (Minimal bruising see n on speculum exam, cervical os is open) Pelvic: tender adnexa, vaginal bleeding Back: no CVA tenderness, no vertebral tenderness Extremities: normal range of motion Neurologic/Psychiatric: alert, normal mood/affect, oriented x 3 Skin: normal color Progress/Results/Core Measures Suspected Sepsis SIRS Temperature: Pulse: 89 Respiratory Rate: 16 Laboratory Tests 06/16/22 15:17: White Blood Count 15.8H Blood Pressure 110 /71 Mean: 84 Laboratory Tests 06/16/22 15:17: Creatinine 0.64, Platelet Count 262, Total Bilirubin 0.2 Results/Orders Lab Results Laboratory Tests Test 06/16/22 15:17 06/16/22 15:41 Range/Units White Blood Count 15.8 H 4.3-11.0 10^3/uL Red Blood Count 4.01 3.80-5.11 10^6/uL Hemoglobin 11.4 L 11.5-16.0 g/dL Hematocrit 34 L 35-52 % Mean Corpuscular Volume 86 80-99 fL Mean Corpuscular Hemoglobin 28 25-34 pg Mean Corpuscular Hemoglobin Concent 33 32-36 g/dL Red Cell Distribution Width 13.4 10.0-14.5 % Platelet Count 262 130-400 10^3/uL Mean Platelet Volume 11.4 9.0-12.2 fL Immature Granulocyte % (Auto) 2 % Neutrophils (%) (Auto) 76 H 42-75 % Lymphocytes (%) (Auto) 16 12-44 % Monocytes (%) (Auto) 6 0-12 % Eosinophils (%) (Auto) 0 0-10 % Basophils (%) (Auto) 0 0-10 % Neutrophils # (Auto) 11.9 H 1.8-7.8 10^3/uL Lymphocytes # (Auto) 2.6 1.0-4.0 10^3/uL Monocytes # (Auto) 0.9 0.0-1.0 10^3/uL Eosinophils # (Auto) 0.1 0.0-0.3 10^3/uL Basophils # (Auto) 0.1 0.0-0.1 10^3/uL Immature Granulocyte # (Auto) 0.3 H 0.0-0.1 10^3/uL Neutrophils % (Manual) 75 % Lymphocytes % (Manual) 19 % Monocytes % (Manual) 5 % Eosinophils % (Manual) 1 % Blood Morphology Comment NORMAL Sodium Level 134 L 135-145 MMOL/L Potassium Level 3.5 L 3.6-5.0 MMOL/L Chloride Level 105 98-107 MMOL/L Carbon Dioxide Level 19 L 21-32 MMOL/L Anion Gap 10 5-14 MMOL/L Blood Urea Nitrogen 12 7-18 MG/DL Creatinine 0.64 0.60-1.30 MG/DL Estimat Glomerular Filtration Rate 127 BUN/Creatinine Ratio 19 Glucose Level 84 70-105 MG/DL Calcium Level 9.1 8.5-10.1 MG/DL Corrected Calcium 8.9 8.5-10.1 MG/DL Magnesium Level 1.6 1.6-2.4 MG/DL Total Bilirubin 0.2 0.1-1.0 MG/DL Aspartate Amino Transf (AST/SGOT) 16 5-34 U/L Alanine Aminotransferase (ALT/SGPT) 17 0-55 U/L Alkaline Phosphatase 69 40-136 U/L Total Protein 6.9 6.4-8.2 GM/DL Albumin 4.3 3.2-4.5 GM/DL Human Chorionic Gonadotropin, Quant 6997 H <5 MIU/ML Urine Color RED H Urine Clarity CLOUDY Urine pH 5.5 5-9 Urine Specific [place] 1.020 1.016-1.022 Urine Protein 1+ H NEGATIVE Urine Glucose (UA) NEGATIVE NEGATIVE Urine Ketones NEGATIVE NEGATIVE Urine Nitrite NEGATIVE NEGATIVE Urine Bilirubin NEGATIVE NEGATIVE Urine Urobilinogen 0.2 < = 1.0 MG/DL Urine Leukocyte Esterase TRACE H NEGATIVE Urine RBC (Auto) 3+ H NEGATIVE Urine RBC TNTC H /HPF Urine WBC 5-10 H /HPF Urine Squamous Epithelial Cells RARE /HPF Urine Crystals NONE /LPF Urine Bacteria FEW H /HPF Urine Casts NONE /LPF Urine Mucus NEGATIVE /LPF Urine Culture Indicated YES My Orders Orders - CHITO ARNOLD MD Cbc With Automated Diff (06/16/22 15:32) Comprehensive Metabolic Panel (06/16/22 15:32) Magnesium (06/16/22 15:32) Ua Culture If Indicated (06/16/22 15:32) Hcg,Quantitative (06/16/22 15:32) Us Ob<14 Wks Sngle W/Transvag (06/16/22 15:30) Manual Differential (06/16/22 15:17) Urine Culture (06/16/22 15:41) Vital Signs/I&O 06/16/22 15:06 Temp 37.3 Pulse 89 Resp 16 B/P (MAP) 110/71 (84) Capillary Refill : Blood Pressure Mean: 84 Progress Note : Progress Note 1. ECTOPIC : - U/S: no gestational sac, thickened endometrium, and possible left ovarian cyst and mass which measures 2.6cm and may be an ectopic - Labs: Hb is stable at 11 - HCG is 6,997 - Discussed with OB/ BRIDGE SAW OPERATOR via phone and patient has clinic appointment in the morning at [address] HURT's office for she will have an outpatient methotrexate infusion -The patient was seen in the ED, and treated appropriately to presentation at a specific point in time. Patient is informed that there is a possibility that disease and illness can evolve and change in acuity rapidly or slowly after patient is discharged from the ER. Precautionary advice given to the patient for immediate return to ER if symptoms worsen or do not resolve, and to seek emergency care sooner rather than later. Pt also advised on the importance of PCP follow up and compliance with management and follow up plan with PCP and/or specialist, as this is part of the management plan. Pt verbally expressed understanding. 2. ACUTE UTI: - Ua is positive for leukocyte esterase, RBC, bacteria, WBC -WBC is 15.8 with a left shift -Nitrofurantoin 100 mg twice daily for another 7 days -Adequate hydration advised Diagnostic Imaging Diagonstic Imaging: Ultrasound Comments [facility], [place] NAME: [facility] REC#: [id number] PT STATUS: REG ER : 2000 PHYSICIAN: CHITO ARNOLD MD ADMIT DATE: 06/16/22/ER Draft Date of Exam:06/16/22 US OB<14 WKS SNGLE W/TRANSVAG EXAMINATION: Pelvic Ultrasound, Complete. INDICATION: , bleeding, LMP unknown. TECHNIQUE: Both transabdominal and endovaginal techniques were employed. COMPARISON: None. FINDINGS: Uterus: The uterus is retroverted in position and measures 7.2 x 5.3 x 6.1 cm transabdominally. The myometrium is homogeneous without fibroids. Endometrium: The endometrial echo complex is thickened and heterogeneous without internal vascularity, measuring 2.3 cm. No cystic structure is seen within the endometrium. Adnexa: Right ovary measures 2.2 x 1.3 x 1.1 cm. The definitive left ovary is poorly visualized. There are two cystic structures within the left adnexa measuring up to 2.2 cm and 2.6 cm. One of the structures demonstrates a thickened wall appearance. There is mild free fluid within the left adnexa. IMPRESSION: 1. There are two separate cystic structures within the left adnexa, one of which has a thick-walled appearance. There is also mild free fluid within the left adnexa. It is difficult to exclude an ectopic versus corpus luteum cyst as the left ovary itself is not well visualized. Recommend close clinical and ultrasound follow-up given the positive test and elevated beta hCG and lack of intrauterine gestation. 2. Thickened, heterogeneous appearance of the endometrium. Early, failed, or ectopic could cause this appearance. CRITICAL FINDING. Results were communicated to Dr. Arnold by Dr. Quincy Cunningham at 04:50 p.m. on 06/16/2022. Dictated on workstation # [id number] Dict: 06/16/22 1630 Trans: 06/16/22 1658 [id number] Interpreted by: MANISH CUNNINGHAM DO Electronically signed by: Departure Communication (Admissions) Time/Spoke to Consulting Phy: 17:00 Oriented by [address] HURT, patient is to follow-up in his clinic at 8 AM tomorrow morning for an outpatient methotrexate infusion. Patient was given the option to be admitted overnight due to the snowstorm coming in the morning, but patient refused and said they will go to the clinic in the morning. Impression Primary Impression: Ectopic of left ovary Disposition: 01 HOME, SELF-CARE Condition: Stable/Unchanged Departure-Patient Inst. Referrals: MIGUEL ANGEL RAMIREZ MD (PCP/Family) Primary Care Physician Patient Instructions: Urinary Tract Infection, Adult (DC), Ectopic ED, Ectopic (DC) Add. Discharge Instructions: - Discussed with OB/ BRIDGE SAW OPERATOR via phone and patient has clinic appointment in the morning at [address] HURT's office for she will have an outpatient meth otrexate infusion -Nitrofurantoin 100 mg twice daily for another 7 days -Adequate hydration advised All discharge instructions reviewed with patient and/or family. Voiced understanding. Scripts Nitrofurantoin Macrocrystal (Nitrofurantoin) 100 Mg Capsule 100 MG PO BID for 7 Days, #14 CAP Prov: CHITO ARNOLD MD 06/16/22 CHITO ARNOLD MD Jun 16, 2022 15:30
[2022-06-16 15:46] LABS: BILIRUBIN,URINE NEGATIVE (NEGATIVE); CLARITY,URINE CLOUDY; COLOR,URINE RED; GLUCOSE, URINE (UA) NEGATIVE (NEGATIVE); KETONES,URINE NEGATIVE (NEGATIVE); LEUKOCYTE ESTERASE ,URINE TRACE (NEGATIVE); NITRITE,URINE NEGATIVE (NEGATIVE); PH,URINE 5.5 (5-9); PROTEIN,URINE 1+ (NEGATIVE)
[2022-06-16 15:47] LABS: ALBUMIN 4.3 GM/DL (3.2-4.5)
[2022-06-16 15:48] LABS: POTASSIUM 3.5 MMOL/L (3.6-5.0)
[2022-06-16 15:49] LABS: CALCIUM 9.1 MG/DL (8.5-10.1)
[2022-06-16 15:50] LABS: TOTAL PROTEIN 6.9 GM/DL (6.4-8.2)
[2022-06-16 15:52] LABS: BILIRUBIN,TOTAL 0.2 MG/DL (0.1-1.0)
[2022-06-16 15:54] LABS: BASOPHILS # (AUTO) 0.1 10^3/uL (0.0-0.1); BASOPHILS % (AUTO) 0 % (0-10); CREATININE SERUM 0.64 MG/DL (0.60-1.30); EOSINOPHILS # (AUTO) 0.1 10^3/uL (0.0-0.3); EOSINOPHILS % (AUTO) 0 % (0-10); HEMATOCRIT 34 % (35-52); HEMOGLOBIN 11.4 g/dL (11.5-16.0); LYMPHOCYTES # (AUTO) 2.6 10^3/uL (1.0-4.0); LYMPHOCYTES % (AUTO) 16 % (12-44); MEAN CORPUSCULAR HEMOGLOBIN 28 pg (25-34); MEAN CORPUSCULAR HGB CONC 33 g/dL (32-36); MEAN CORPUSCULAR VOLUME 86 fL (80-99); MEAN PLATELET VOLUME 11.4 fL (9.0-12.2); MONOCYTES # (AUTO) 0.9 10^3/uL (0.0-1.0); MONOCYTES % (AUTO) 6 % (0-12); NEUTROPHILS # (AUTO) 11.9 10^3/uL (1.8-7.8); NEUTROPHILS % (AUTO) 76 % (42-75); PLATELET COUNT 262 10^3/uL (130-400); WHITE BLOOD COUNT 15.8 10^3/uL (4.3-11.0)
[2022-06-16 15:57] LABS: MAGNESIUM 1.6 MG/DL (1.6-2.4)
[2022-06-16 16:05] LABS: BACTERIA,URINE FEW /HPF; RBC,URINE TNTC /HPF; SQUAMOUS EPITHELIAL CELL,UR RARE /HPF
[2022-06-16 16:24] LABS: EOSINOPHILS % (MANUAL) 1 %; LYMPHOCYTES % (MANUAL) 19 %; MONOCYTES % (MANUAL) 5 %; NEUTROPHILS % (MANUAL) 75 %
[2022-06-16 16:25] LABS: RBC MORPH NORMAL
--- NOTE | 2022-06-16 16:58 | Diagnostic Imaging Report ---
EXAMINATION: Pelvic Ultrasound, Complete. INDICATION: , bleeding, LMP unknown. TECHNIQUE: Both transabdominal and endovaginal techniques were employed. COMPARISON: None. FINDINGS: Uterus: The uterus is retroverted in position and measures 7.2 x 5.3 x 6.1 cm transabdominally. The myometrium is homogeneous without fibroids. Endometrium: The endometrial echo complex is thickened and heterogeneous without internal vascularity, measuring 2.3 cm. No cystic structure is seen within the endometrium. Adnexa: Right ovary measures 2.2 x 1.3 x 1.1 cm. The definitive left ovary is poorly visualized. There are two cystic structures within the left adnexa measuring up to 2.2 cm and 2.6 cm. One of the structures demonstrates a thickened wall appearance. There is mild free fluid within the left adnexa. IMPRESSION: 1. There are two separate cystic structures within the left adnexa, one of which has a thick-walled appearance. There is also mild free fluid within the left adnexa. It is difficult to exclude an ectopic versus corpus luteum cyst as the left ovary itself is not well visualized. Recommend close clinical and ultrasound follow-up given the positive test and elevated beta hCG and lack of intrauterine gestation. 2. Thickened, heterogeneous appearance of the endometrium. Early, failed, or ectopic could cause this appearance. CRITICAL FINDING. Results were communicated to Dr. Arnold by Dr. Quincy Cintron at 04:50 p.m. on 06/16/2022. Dictated by: Dictated on workstation # [id number]
[2022-06-16] MEDS ORDERED: NITR100C PO (17:35)
[2022-06-16 17:50] VITALS: BP 110/74
== END 2022-06-16 17:51 | disposition home or self-care (01) ==
LOC: EDUNIT# 15:09 → ER 15:11
DX: O00.202 Left ovarian pregnancy without intrauterine pregnancy (principal); Z28.310 Unvaccinated for COVID-19; Z3A.00 Weeks of gestation of pregnancy not specified
CPT/HCPCS: 36415; 76801; 76817; 80053; 81000; 83735; 84702; 85007; 85027; 87077; 87088

== ENCOUNTER 2022-06-17 09:21 | Observation (INO) | payer SELFPAY ==
[~2022-06-17] VITALS: Ht 162 cm; Wt 71.2 kg
[~2022-06-17 09:21] MED LIST changes: +NITR100C PO; -POTA10CA43 PO; +POTA10CA44 PO
[2022-06-17] MEDS ORDERED: METHOTREXATE 50 MG/2 ML PF IM ONE ×2 (10:15→10:30)
[2022-06-17 10:35] VITALS: BP 98/66
[2022-06-17] MEDS ORDERED: HYDROcodone/APAP 5 MG/325 MG (LORTAB) TAB PO PRN (10:45)
[2022-06-17 11:00] VITALS: BP 106/62
[2022-06-17 11:23] LABS: BASOPHILS # (AUTO) 0.1 10^3/uL (0.0-0.1); BASOPHILS % (AUTO) 0 % (0-10); EOSINOPHILS % (AUTO) 0 % (0-10); HEMATOCRIT 33 % (35-52); HEMOGLOBIN 11.1 g/dL (11.5-16.0); LYMPHOCYTES # (AUTO) 2.1 10^3/uL (1.0-4.0); LYMPHOCYTES % (AUTO) 14 % (12-44); MEAN CORPUSCULAR HEMOGLOBIN 29 pg (25-34); MEAN CORPUSCULAR HGB CONC 33 g/dL (32-36); MEAN CORPUSCULAR VOLUME 85 fL (80-99); MEAN PLATELET VOLUME 10.8 fL (9.0-12.2); MONOCYTES # (AUTO) 0.8 10^3/uL (0.0-1.0); MONOCYTES % (AUTO) 5 % (0-12); NEUTROPHILS # (AUTO) 12.2 10^3/uL (1.8-7.8); NEUTROPHILS % (AUTO) 80 % (42-75); PLATELET COUNT 272 10^3/uL (130-400); WHITE BLOOD COUNT 15.2 10^3/uL (4.3-11.0)
[2022-06-17 11:30] VITALS: BP 103/63
[2022-06-17] MEDS: D5 LR IV SOLUTION 1,000 ML IV SCH ×2 (11:30→21:17)
[2022-06-17] MEDS: IBUPROFEN 600 MG (MOTRIN) TAB PO PRN ×2 (11:30→18:24)
[2022-06-17 11:49] LABS: ALBUMIN 4.4 GM/DL (3.2-4.5); BILIRUBIN,TOTAL 0.3 MG/DL (0.1-1.0); CALCIUM 9.4 MG/DL (8.5-10.1); CREATININE SERUM 0.68 MG/DL (0.60-1.30); POTASSIUM 4.1 MMOL/L (3.6-5.0); TOTAL PROTEIN 7.2 GM/DL (6.4-8.2)
[2022-06-17 11:54] LABS: LYMPHOCYTES % (MANUAL) 10 %; MONOCYTES % (MANUAL) 4 %; NEUTROPHILS % (MANUAL) 81 %; RBC MORPH NORMAL; REACTIVE LYMPHOCYTES 5 %
[2022-06-17 13:07] VITALS: BP 97/54
--- NOTE | 2022-06-17 14:48 | History & Physical-Surgical ---
HPO-Surgical History of Present Illness Chief Complaint: Heavy vaginal bleeding, cramping pains Diagnosis/Surgical Indication: Ovarian mass with elevated HCG, possible ectopic vs incomplte ab. Date of Surgery: Jun 17, 2022 Allergies and Home Medications Allergies Coded Allergies: No Known Drug Allergies (Unverified , 09/09/19) Patient Home Medication List Home Medication List Reviewed: Yes Docusate Sodium (Docusate Sodium) 100 Mg Capsule, 100 MG PO BID PRN for CONSTIPATION-1ST LINE Prescribed by: DINO HURT on 12/19/21921 Ferrous Sulfate (Ferosul) 325 Mg (65 Mg Iron) Tablet, 325 MG PO TIDWM Prescribed by: DINO HURT on 12/19/21921 Hydrocodone/Acetaminophen (Hydrocodone-Acetamin 5-325 mg) 5 Mg-325 Mg Tablet, 1- 2 TAB PO Q6H PRN for PAIN-MODERATE (5-7) Prescribed by: DINO HURT on 12/19/21941 Ibuprofen (Ibu) 600 Mg Tablet, 600 MG PO Q6HR Prescribed by: DINO HURT on 12/19/21921 Nitrofurantoin Macrocrystal (Nitrofurantoin) 100 Mg Capsule, 100 MG PO BID Prescribed by: CHITO ROMERO MD on 06/16/22 173 Potassium Chloride (Potassium Chloride) 10 Meq Capsule.er, 10 MEQ PO DAILY Prescribed by: DINO HURT on 12/19/21921 Past Vcuhgav-Askqdn-Dszdac Hx Patient Social History Recent Hopitalizations: No Immunizations Up To Date Tetanus Booster (TDap): Unknown Seasonal Allergies Seasonal Allergies: No Surgeries Yes Section Respiratory No Currently Using CPAP: No Currently Using BIPAP: No Cardiovascular No Neurological No Reproductive System Sexually Transmitted Disease: No HIV/AIDS: No Genitourinary No Gastrointestinal No Musculoskeletal No Endocrine History of Endocrine Disorders: No HEENT History of HEENT Disorders: No Cancer No Psychosocial History of Psychiatric Problem: No Integumentary History of Skin or Integumenta: No Blood Transfusions History of Blood Disorders: No Adverse Reaction to a Blood Tr: No Family Medical History Family Hx: Patient reports no known family medical history. Exam Vital Signs Vital Signs 06/17/22 13:07 Temp 37.2 Pulse 75 Resp 18 B/P (MAP) 97/54 (68) Pulse Ox 99 O2 Delivery Room Air Capillary Refill : Less Than 3 Seconds Labs Laboratory Tests Test 06/17/22 11:05 Range/Units White Blood Count 15.2 H 4.3-11.0 10^3/uL Red Blood Count 3.90 3.80-5.11 10^6/uL Hemoglobin 11.1 L 11.5-16.0 g/dL Hematocrit 33 L 35-52 % Mean Corpuscular Volume 85 80-99 fL Mean Corpuscular Hemoglobin 29 25-34 pg Mean Corpuscular Hemoglobin Concent 33 32-36 g/dL Red Cell Distribution Width 13.8 10.0-14.5 % Platelet Count 272 130-400 10^3/uL Mean Platelet Volume 10.8 9.0-12.2 fL Immature Granulocyte % (Auto) 1 % Neutrophils (%) (Auto) 80 H 42-75 % Lymphocytes (%) (Auto) 14 12-44 % Monocytes (%) (Auto) 5 0-12 % Eosinophils (%) (Auto) 0 0-10 % Basophils (%) (Auto) 0 0-10 % Neutrophils # (Auto) 12.2 H 1.8-7.8 10^3/uL Lymphocytes # (Auto) 2.1 1.0-4.0 10^3/uL Monocytes # (Auto) 0.8 0.0-1.0 10^3/uL Eosinophils # (Auto) 0.0 0.0-0.3 10^3/uL Basophils # (Auto) 0.1 0.0-0.1 10^3/uL Immature Granulocyte # (Auto) 0.1 0.0-0.1 10^3/uL Neutrophils % (Manual) 81 % Lymphocytes % (Manual) 10 % Monocytes % (Manual) 4 % Reactive Lymphocytes 5 % Blood Morphology Comment NORMAL Sodium Level 136 135-145 MMOL/L Potassium Level 4.1 3.6-5.0 MMOL/L Chloride Level 107 98-107 MMOL/L Carbon Dioxide Level 19 L 21-32 MMOL/L Anion Gap 10 5-14 MMOL/L Blood Urea Nitrogen 11 7-18 MG/DL Creatinine 0.68 0.60-1.30 MG/DL Estimat Glomerular Filtration Rate 125 BUN/Creatinine Ratio 16 Glucose Level 91 70-105 MG/DL Calcium Level 9.4 8.5-10.1 MG/DL Corrected Calcium 9.1 8.5-10.1 MG/DL Total Bilirubin 0.3 0.1-1.0 MG/DL Aspartate Amino Transf (AST/SGOT) 16 5-34 U/L Alanine Aminotransferase (ALT/SGPT) 18 0-55 U/L Alkaline Phosphatase 69 40-136 U/L Total Protein 7.2 6.4-8.2 GM/DL Albumin 4.4 3.2-4.5 GM/DL Human Chorionic Gonadotropin, Quant 5424 H <5 MIU/ML General Appearance: Alert, Oriented X3, Mild Distress HEENT: Atraumatic Respiratory: Clear to Auscultation Cardiovascular: Regular Rate Abdominal: Normal Bowel Sounds Neuro: Normal Gait Psych/Mental Status: Mental Status NL Assessment/Plan Admission Diagnosis Diagnosis: 22 yo female with lower abdominal pain Ectopic Vaginal bleeding P: Methotrexate given in Day Surgery due to 6000+ hcg and no IUP diagnosis of ectopic Will monitor overnight for bleeding Plan for dismissal tomorrow if symptoms improve, if worsen will consider surgical management Admission Status: Observation DINO HURT DO Jun 17, 2022 2:48 pm
[2022-06-17 16:48] VITALS: BP 95/54
[2022-06-17 21:10] VITALS: BP 95/51
[2022-06-18] MEDS: IBUPROFEN 600 MG (MOTRIN) TAB PO PRN ×4 (00:54→18:43)
[2022-06-18 00:58] VITALS: BP 94/53
[2022-06-18 04:15] VITALS: BP 93/50
--- NOTE | 2022-06-18 08:39 | Progress Note ---
Standard Progress Note Progress Notes/Assess & Plan Date Seen by a Provider: Jun 18, 2022 Time Seen by a Provider: 08:00 Progress/Assessment & Plan Patient doing well this AM, bleeding has slowed down. Awaiting US report to decide dismissal. Patient given methotrexate yesterday. Vital Sign - Last 24 Hours 06/17/22 06/17/22 06/17/22 06/17/22 10:35 11:00 11:00 11:30 Temp 36.8 36.7 36.7 Pulse 83 75 75 72 Resp 18 18 18 18 B/P (MAP) 98/66 106/62 (77) 106/62 103/63 (76) Pulse Ox 99 100 100 100 O2 Delivery Room Air Room Air Room Air Room Air 06/17/22 06/17/22 06/17/22 06/18/22 13:07 16:48 21:10 00:58 Temp 37.2 36.7 36.9 36.6 Pulse 75 75 76 74 Resp 18 18 18 18 B/P (MAP) 97/54 (68) 95/54 (68) 95/51 (66) 94/53 (67) Pulse Ox 99 100 100 99 O2 Delivery Room Air Room Air Room Air Room Air 06/18/22 04:15 Temp 36.6 Pulse 71 Resp 18 B/P (MAP) 93/50 (64) Pulse Ox 99 O2 Delivery Room Air Abd: soft/ tender diffusely/ no rebound. Diagnosis: Ectopic Vaginal bleeding P: Dismissal later today or tomorrow morning pending status today Cytotec given today to help with bleeding amount Labs ordered for tomorrow if patient stays. DINO HURT DO Jun 18, 2022 08:39
[2022-06-18 08:57] VITALS: BP 99/57
--- NOTE | 2022-06-18 09:27 | Diagnostic Imaging Report ---
INDICATION: History of ectopic . Comparison with 06/16/2022. FINDINGS: Uterus measures 8.4 x 5.5 x 6 cm. Endometrial stripe is thickened at 2.8 cm. No evidence of an intrauterine . The right ovary measures 2.2 x 1.2 x 1.6 cm. Left ovary measures 2.5 x 2.3 x 2.4 cm. There is normal blood flow to the ovaries. There is a cyst in the left ovary measuring 1.8 x 1.4 x 1.8 cm. There is a 2nd thick walled cyst in the adnexa measuring 2.7 x 1.8 x 2.2 cm. There is a small amount of free fluid in the cul-de-sac. IMPRESSION: 1. No findings to suggest intrauterine with thickened endometrium. 2. The left ovarian cyst as well as the left adnexal cyst are again noted and have changed very little. The adnexal cyst is perhaps slightly larger today. There is a trace of free fluid. Dictated by: Dictated on workstation # [id number]
[2022-06-18] MEDS: D5 LR IV SOLUTION 1,000 ML IV SCH ×2 (11:11→18:47)
[2022-06-18 14:23] VITALS: BP 96/51
[2022-06-18 18:50] VITALS: BP 93/53
[2022-06-19 00:14] VITALS: BP 93/52
[2022-06-19] MEDS: IBUPROFEN 600 MG (MOTRIN) TAB PO PRN ×2 (00:14→06:26)
[2022-06-19] MEDS: D5 LR IV SOLUTION 1,000 ML IV SCH (03:17)
[2022-06-19 06:08] LABS: EOSINOPHILS # (AUTO) 0.2 10^3/uL (0.0-0.3); EOSINOPHILS % (AUTO) 2 % (0-10); HEMATOCRIT 28 % (35-52); HEMOGLOBIN 8.9 g/dL (11.5-16.0); MEAN CORPUSCULAR HEMOGLOBIN 29 pg (25-34); MEAN CORPUSCULAR HGB CONC 32 g/dL (32-36); MEAN CORPUSCULAR VOLUME 88 fL (80-99)
[2022-06-19 06:10] LABS: BASOPHILS % (AUTO) 1 % (0-10); LYMPHOCYTES # (AUTO) 3.2 10^3/uL (1.0-4.0); LYMPHOCYTES % (AUTO) 45 % (12-44); MEAN PLATELET VOLUME 11.8 fL (9.0-12.2); MONOCYTES # (AUTO) 0.4 10^3/uL (0.0-1.0); MONOCYTES % (AUTO) 5 % (0-12); NEUTROPHILS # (AUTO) 3.4 10^3/uL (1.8-7.8); NEUTROPHILS % (AUTO) 47 % (42-75); WHITE BLOOD COUNT 7.3 10^3/uL (4.3-11.0)
[2022-06-19 06:28] VITALS: BP 98/553
[2022-06-19 06:33] LABS: PLATELET COUNT 151 10^3/uL (130-400)
[2022-06-19 06:34] LABS: SMEAR SCAN COMMENT 0 CLUMPS OBSERVED
[2022-06-19] MEDS ORDERED: IBUP-844 PO (08:14)
[2022-06-19] MEDS ORDERED: FERR-74 PO (08:14)
--- NOTE | 2022-06-19 08:19 | Progress Note ---
Standard Progress Note Progress Notes/Assess & Plan Date Seen by a Provider: Jun 19, 2022 Time Seen by a Provider: 08:20 Progress/Assessment & Plan Patient doing well this AM, bleeding has slowed down more today. US showed blood clots in uterus yesterday and given misoprostol PO yesterday which helped with bleeding. Patient given methotrexate . Vital Sign - Last 24 Hours 06/18/22 06/18/22 06/18/22 06/19/22 08:57 14:23 18:50 00:14 Temp 36.8 36.9 37.1 36.8 Pulse 73 74 72 75 Resp 18 18 18 18 B/P (MAP) 99/57 (71) 96/51 (66) 93/53 (66) 93/52 (66) Pulse Ox 100 100 100 99 O2 Delivery Room Air Room Air Room Air Room Air 06/19/22 06:28 Temp 36.8 Pulse 68 Resp 18 B/P (MAP) 98/553 (403) Pulse Ox 100 O2 Delivery Room Air Intake and Output 06/18/22 06/18/22 06/19/22 15:00 23:00 07:00 Intake Total 1000 ml 1000 ml Balance 1000 ml 1000 ml Diagnosis: Ectopic Vaginal bleeding P: Dismissal today DINO HURT DO Jun 19, 2022 08:19
[2022-06-19 08:50] VITALS: BP 100/57
== END 2022-06-19 08:11 | disposition home or self-care (01) ==
LOC: SDC 09:21 → LDRP 10:39 → UNDOADMOB 10:40 → LDRP 10:40 → UNDODISOB 06-19 08:11
PROVIDERS: ADMIT Obstetrics & Gynecology; ATTEND Obstetrics & Gynecology
DX: O00.90 Unspecified ectopic pregnancy without intrauterine pregnancy (principal); O08.1 Delayed or excessive hemorrhage following ectopic and molar pregnancy
CPT/HCPCS: 76801; 76817; 80053; 84702; 85007; 85025; 85027; 96360; 96361 ×3; 96372; G0378; G0379; 36415

== ENCOUNTER → 2022-07-23 | Outpatient (CLI) | payer SELFPAY ==
[~2022-07-23] MED LIST changes: +FERR-74 PO
--- NOTE | 2022-07-23 13:54 | Diagnostic Imaging Report ---
PROCEDURE: Pelvic comp/transvaginal sonogram. TECHNIQUE: Complete transabdominal and transvaginal pelvic ultrasound was performed. In addition, limited pelvic Doppler was performed. INDICATION: Ectopic . The uterus is retroverted measuring 6.3 x 3.8 x 5.3 cm. Endometrium is 4 mm in thickness. No myometrial mass is detected. Right ovary measures 3.0 x 1.6 x 1.6 cm and the left ovary measures 2.4 x 1.4 x 1.6 cm. There is a simple-appearing cyst in the left adnexa measuring 2.6 x 1.6 x 2.2 cm. There is blood flow to the ovaries. There is no free fluid. IMPRESSION: 2.6 cm left adnexal cyst. The study is otherwise unremarkable. Dictated by: Dictated on workstation # [id number]
== END ==
LOC: RAD 12:08
PROVIDERS: ATTEND Obstetrics & Gynecology
DX: N83.292 Other ovarian cyst, left side (principal); O00.90 Unspecified ectopic pregnancy without intrauterine pregnancy; Z3A.00 Weeks of gestation of pregnancy not specified
CPT/HCPCS: 76830; 76856

== ENCOUNTER → 2023-05-23 | Outpatient (CLI) | payer SELFPAY ==
[~2023-05-23] MED LIST changes: +IBUP-1773 PO; -POTA10CA44 PO; +POTA10CA84 PO
== END | disposition home or self-care (01) ==
LOC: PREOP 15:14
PROVIDERS: ATTEND Obstetrics & Gynecology
DX: Z01.818 Encounter for other preprocedural examination (principal)

== ENCOUNTER 2023-05-24 05:58 | Day surgery (SDC) | payer SELFPAY ==
[2023-05-24] VITALS (11 sets, daily range): BP systolic 89–116; BP diastolic 59–85
[~2023-05-24] VITALS: Ht 162 cm; Wt 77.2 kg
[~2023-05-24 05:58] MED LIST changes: -IBUP-1773 PO
[2023-05-24] MEDS ORDERED: ceFAZolin INJECTION 2,000 MG in NS (IVPB) 50 ML 50 ML IV ONE (06:15)
[2023-05-24] MEDS ORDERED: MIDAZOLAM INJ 2 MG/2 ML VIAL ONE (06:17)
[2023-05-24] MEDS ORDERED: fentaNYL INJECTION 100 MCG/2 ML VIAL ONE (06:17)
[2023-05-24] MEDS ORDERED: LIDOCAINE PF 2% 5 ML VIAL ONE (06:19)
[2023-05-24] MEDS ORDERED: proPOfol INJECTION 200 MG/20 ML VIAL IV ONE (06:19)
[2023-05-24 06:29] LABS: BASOPHILS % (AUTO) 1 % (0-10); EOSINOPHILS # (AUTO) 0.1 10^3/uL (0.0-0.3); EOSINOPHILS % (AUTO) 2 % (0-10); HEMATOCRIT 39 % (35-52); LYMPHOCYTES # (AUTO) 2.6 10^3/uL (1.0-4.0); LYMPHOCYTES % (AUTO) 32 % (12-44); MEAN CORPUSCULAR HEMOGLOBIN 28 pg (25-34); MEAN CORPUSCULAR HGB CONC 33 g/dL (32-36); MEAN CORPUSCULAR VOLUME 86 fL (80-99); MEAN PLATELET VOLUME 10.3 fL (9.0-12.2); MONOCYTES # (AUTO) 0.6 10^3/uL (0.0-1.0); MONOCYTES % (AUTO) 7 % (0-12); NEUTROPHILS # (AUTO) 4.8 10^3/uL (1.8-7.8); NEUTROPHILS % (AUTO) 59 % (42-75); PLATELET COUNT 276 10^3/uL (130-400); WHITE BLOOD COUNT 8.1 10^3/uL (4.3-11.0)
[2023-05-24] MEDS ORDERED: ceFAZolin INJECTION 2,000 MG ONE (06:34)
[2023-05-24] MEDS ORDERED: NS (IVPB) 50 ML 50 ML ONE (06:34)
[2023-05-24] MEDS: LACTATED RINGERS 1,000 ML 1,000 ML IV PRN ×5 (06:38→08:14)
[2023-05-24 06:51] LABS: ALBUMIN 4.2 GM/DL (3.2-4.5); BILIRUBIN,TOTAL 0.4 MG/DL (0.1-1.0); CALCIUM 9.4 MG/DL (8.5-10.1); CREATININE SERUM 0.69 MG/DL (0.60-1.30); POTASSIUM 3.7 MMOL/L (3.6-5.0); TOTAL PROTEIN 7.2 GM/DL (6.4-8.2)
[2023-05-24] MEDS ORDERED: SEVOFLURANE (ULTANE) 15 ML INHAL SOLN ONE (07:57)
[2023-05-24] MEDS ORDERED: dexAMETHasone INJ 10 MG/ML 1 ML VIAL ONE (07:58)
[2023-05-24] MEDS ORDERED: ONDANSETRON INJECTION 4 MG/2 ML (SDV) ONE (07:58)
--- NOTE | 2023-05-24 08:10 | Anesthesia-General Post-Op ---
General Patient Condition Mental Status/LOC: Same as Preop Cardiovascular: Satisfactory Nausea/Vomiting: Absent Respiratory: Satisfactory Pain: Controlled Complications: Absent Post Op Complications Complications None Follow Up Care/Instructions Patient Instructions None needed. Anesthesia/Patient Condition Patient Condition Patient is doing well, no complaints, stable vital signs, no apparent adverse anesthesia problems. No complications reported per nursing. HIRO SINCLAIR CRNA May 24, 2023 08:10
--- NOTE | 2023-05-24 08:14 | History & Physical-Surgical ---
HPO-Surgical History of Present Illness Chief Complaint: Missed Ab Diagnosis/Surgical Indication: Missed AB Procedure: Suction D and C Date of Surgery: May 24, 2023 Allergies and Home Medications Allergies Coded Allergies: No Known Drug Allergies (Unverified , 09/09/19) Patient Home Medication List Home Medication List Reviewed: Yes Ferrous Sulfate (Ferrous Sulfate) 325 Mg (65 Mg Iron) Tablet, 325 MG PO TID Prescribed by: DINO HURT on 06/19/22 0814 Hydrocodone/Acetaminophen (Hydrocodone-Acetamin 5-325 mg) 5 Mg-325 Mg Tablet, 1- 2 TAB PO Q6H PRN for PAIN-MODERATE (5-7) Prescribed by: DINO HURT on 12/19/21 0942 Ibuprofen (Ibu) 600 Mg Tablet, 600 MG PO Q6HR PRN for PAIN-MILD (1-4) Prescribed by: DINO HURT on 06/19/22 0814 Past Mqsqzzm-Lcmhpq-Srokyk Hx Patient Social History Marrital Status: Recent Hopitalizations: No Alcohol Use?: No Immunizations Up To Date Tetanus Booster (TDap): Unknown Seasonal Allergies Seasonal Allergies: No Surgeries No Section Respiratory No Currently Using CPAP: No Currently Using BIPAP: No Cardiovascular No Neurological No Reproductive System Sexually Transmitted Disease: No HIV/AIDS: No Genitourinary No Gastrointestinal No Musculoskeletal No Endocrine History of Endocrine Disorders: No HEENT History of HEENT Disorders: No Cancer No Psychosocial History of Psychiatric Problem: No Integumentary History of Skin or Integumenta: No Blood Transfusions History of Blood Disorders: No Adverse Reaction to a Blood Tr: No Family Medical History Family Hx: Patient reports no known family medical history. Exam Vital Signs Vital Signs 05/24/23 07:46 Temp 36.7 Pulse 85 Resp 20 B/P (MAP) 108/70 (83) Pulse Ox 98 O2 Delivery Room Air Capillary Refill : Labs Laboratory Tests Test 05/24/23 06:20 Range/Units White Blood Count 8.1 4.3-11.0 10^3/uL Red Blood Count 4.57 3.80-5.11 10^6/uL Hemoglobin 13.0 11.5-16.0 g/dL Hematocrit 39 35-52 % Mean Corpuscular Volume 86 80-99 fL Mean Corpuscular Hemoglobin 28 25-34 pg Mean Corpuscular Hemoglobin Concent 33 32-36 g/dL Red Cell Distribution Width 12.9 10.0-14.5 % Platelet Count 276 130-400 10^3/uL Mean Platelet Volume 10.3 9.0-12.2 fL Immature Granulocyte % (Auto) 0 % Neutrophils (%) (Auto) 59 42-75 % Lymphocytes (%) (Auto) 32 12-44 % Monocytes (%) (Auto) 7 0-12 % Eosinophils (%) (Auto) 2 0-10 % Basophils (%) (Auto) 1 0-10 % Neutrophils # (Auto) 4.8 1.8-7.8 10^3/uL Lymphocytes # (Auto) 2.6 1.0-4.0 10^3/uL Monocytes # (Auto) 0.6 0.0-1.0 10^3/uL Eosinophils # (Auto) 0.1 0.0-0.3 10^3/uL Basophils # (Auto) 0.0 0.0-0.1 10^3/uL Immature Granulocyte # (Auto) 0.0 0.0-0.1 10^3/uL Sodium Level 137 135-145 MMOL/L Potassium Level 3.7 3.6-5.0 MMOL/L Chloride Level 107 98-107 MMOL/L Carbon Dioxide Level 22 21-32 MMOL/L Anion Gap 8 5-14 MMOL/L Blood Urea Nitrogen 6 L 7-18 MG/DL Creatinine 0.69 0.60-1.30 MG/DL Estimat Glomerular Filtration Rate 124 BUN/Creatinine Ratio 9 Glucose Level 95 70-105 MG/DL Calcium Level 9.4 8.5-10.1 MG/DL Corrected Calcium 9.2 8.5-10.1 MG/DL Total Bilirubin 0.4 0.1-1.0 MG/DL Aspartate Amino Transf (AST/SGOT) 13 5-34 U/L Alanine Aminotransferase (ALT/SGPT) 14 0-55 U/L Alkaline Phosphatase 80 40-136 U/L Total Protein 7.2 6.4-8.2 GM/DL Albumin 4.2 3.2-4.5 GM/DL General Appearance: Alert, Oriented X3 HEENT: Atraumatic Respiratory: Clear to Auscultation Cardiovascular: Regular Rate Abdominal: Normal Bowel Sounds Neuro: Normal Gait Psych/Mental Status: Mental Status NL Assessment/Plan Assessment and Plan Diagnosis: Missed Ab P: Suction D and C Admission Diagnosis Admission Status: Other (Same Day Surgery) DINO HURT DO May 24, 2023 08:14
[2023-05-24] MEDS ORDERED: fentaNYL INJECTION 100 MCG/2 ML VIAL IVP ONE (08:15)
[2023-05-24] MEDS ORDERED: KETOROLAC INJ 30 MG/ML VIAL IVP ONE (08:15)
[2023-05-24] MEDS ORDERED: ONDANSETRON INJECTION 4 MG/2 ML (SDV) IVP PRN ×2 (08:15)
[2023-05-24] MEDS ORDERED: D5 LR 1,000 ML IV SOLN 1,000 ML IV SCH (08:15)
--- NOTE | 2023-05-24 08:17 | Discharge Inst-Women's Service ---
Discharge Inst-Women's Serv Depart Medication/Instructions New, Converted or Re-Newed RX: Transmitted to Pharmacy Problems Reviewed?: Yes Consults/Follow Up Additional Follow Up: Yes Orders/Referrals Dr. Hurt in 2-3 weeks Activity Activity: Activity as Tolerated Driving Instructions: No Driving for 1 Week NO SMOKING: NO SMOKING Nothing Inside Vagina: No Douching, No [place], No Tampons Diet Discharge Diet: No Restrictions Symptoms to Report to : Bleeding Excessive, Pain Increased, Fever Over 101 Degrees F, Vaginal Bleeding Increase, Questions/Concerns For Any Problems or Questions: Contact Your Physician DINO HURT DO May 24, 2023 08:17
[2023-05-24] MEDS ORDERED: ACHD5005 PO (08:19)
[2023-05-24] MEDS ORDERED: IBUP-1773 PO (08:19)
[2023-05-24] MEDS ORDERED: KETOROLAC INJ 30 MG/ML VIAL ONE (08:20)
[2023-05-24] MEDS ORDERED: HYDROcodone/ACETAMINOPHEN 5 MG/325 MG TABLET PO PRN (08:30)
--- NOTE | 2023-05-24 15:45 | OPERATIVE REPORT ---
PREOPERATIVE DIAGNOSES: A 23-year-old female with missed . POSTOPERATIVE DIAGNOSES: A 23-year-old female with missed . PROCEDURE: Suction D and C. SURGEON: Dino Hurt DO ANESTHESIA: LMA general. ESTIMATED BLOOD LOSS: 400 mL URINE OUTPUT: 200 mL drained at the start of the procedure. FLUIDS: 800 mL of lactated Ringer solution. FINDINGS: Grossly normal-appearing external female genitalia with a moderate to large amount of products of conception. SPECIMEN SENT: Products of conception. INDICATIONS FOR PROCEDURE: This 23-year-old female was a patient who was scheduled for suction D and C today after a finding of missed AB yesterday in the office. I discussed with the patient in the preoperative area risks of the procedure including waiting for spontaneous miscarriage on her own at home. The patient wished to proceed with suction D and C. After all of her questions were answered, she was agreeable to proceed. Consent was obtained, the patient was taken to the operating room. OPERATIVE REPORT IN DETAIL: Once in the operating room, anesthesia was administered and found to be adequate, was placed in dorsal lithotomy position, prepped and draped in normal sterile fashion. A timeout was performed. A weighted speculum inserted to the patient's vagina. Right angle retractor was utilized the cervix, was grasped at 12 o'clock position using a long Allis clamp. I then gently sound the uterine cavity depth was found to be 11 cm. I then gently dilated cervix using Hanks dilators to maximum dilatation of 1 cm at which point I selected a #10 suction curette and advanced into the uterus attached Ringgold suction and applied suction to approximately 70-75 mmHg. I rotated the suction Alex curette methodically throughout the uterine cavity clearing the cavity of all products of conception and debris. This is done on several different passes, after which a gentle sharp curettage was performed until a gentle uterine cry is appreciated. I then performed one final pass with the suction Alex curette, after which there is little to no bleeding noted and all tissue seemed to have been removed at that point. All instruments were removed from the patient's vagina at that point. The patient tolerated the procedure well and sent to recovery area in stable condition. Lap and sponge counts were correct at the end of the procedure. Instrument counts correct as well. Job ID: [id number] DocumentID: [id number] Dictated Date: 05/24/2023 10:48:43 Confectionery Maker Date: 05/24/2023 15:43:00 Dictated By: DINO HURT DO
== END 2023-05-24 09:56 | disposition home or self-care (01) ==
LOC: SDC 05:58
PROVIDERS: ATTEND Obstetrics & Gynecology
DX: O02.1 Missed abortion (principal)
CPT/HCPCS: 36415; 80053; 85025; 86850; 86900; 86901; 87081